=== PATIENT | male | born 1955 | race Caucasian/White ===

== ENCOUNTER 2018-10-06 12:50 | Emergency (ER) | payer MEDICARE, MEDICAID ==
[~2018-10-06] VITALS: Ht 162.6 cm; Wt 81.8 kg
[~2018-10-06 12:50] MED LIST: ALBU18HF2 INH; BECL8.7A7 IH; BUPR-83 PO; DULO60CA45 PO; FERR325T39 PO; FLO0.4C PO; HYDR-4353 PO; IPRA3AMP9 IH; LORA10TA65 PO; MONT10TA21 PO; OMEP20CA10 PO
[2018-10-06 14:02] LABS: BASOPHILS % (AUTO) 0.1 % (0-1); EOSINOPHILS # (AUTO) 0.2 X10'3 (0-0.9); EOSINOPHILS % (AUTO) 2.5 % (0-6); LYMPHOCYTES # (AUTO) 0.5 X10'3 (1.1-4.8); LYMPHOCYTES % (AUTO) 5.7 % (21-51); MEAN CORPUSCULAR HGB CONC 31.7 % (33.0-36.5); MEAN CORPUSCULAR VOLUME 91.5 FL (78-98); MEAN PLATELET VOLUME 8.1 FL (7.4-10.4); MONOCYTES # (AUTO) 0.6 X10'3 (0-0.9); MONOCYTES % (AUTO) 6.7 % (2-12); NEUTROPHILS # (AUTO) 7.9 X10'3 (1.8-7.7); PLATELET COUNT 208 X10'3 (140-440); RED BLOOD COUNT 6.34 X10'6 (4.70-6.10); RED CELL DISTRIBUTION WIDTH 17.5 % (11.5-14.5); WHITE BLOOD COUNT 9.3 X10'3 (4.5-11.0)
[2018-10-06 14:12] LABS: HEMOGLOBIN 18.4 g/dl (14.0-17.9)
[2018-10-06 14:15] LABS: ALANINE AMINOTRANSFERASE 111 U/L (12-78); ALBUMIN 2.8 G/DL (3.4-5.0); ALKALINE PHOSPHATASE 520 IU/L (46-116); ANION GAP 7 (8-16); ASPARTATE AMINO TRANSFERASE 99 U/L (10-37); BILIRUBIN,TOTAL 7.4 MG/DL (0.1-1.0); BLOOD UREA NITROGEN 9 MG/DL (7-18); BUN/CREATININE RATIO 9.9 (5.4-32.0); CALCIUM 9.5 MG/DL (8.5-10.1); CHLORIDE 96 MMOL/L (99-107); CREATININE 0.91 MG/DL (0.60-1.10); GLUCOSE 116 MG/DL (70-104); LIPASE 66 U/L (73-393); SODIUM 133 MMOL/L (135-145); TOTAL CARBON DIOXIDE 30.1 MMOL/L (24-32); eGFR 84 ML/MIN
[2018-10-06] MEDS ORDERED: normal saline 1000ML IV soln IVB ONE (14:15)
[2018-10-06] MEDS ORDERED: ondansetron/PF 4mg/2ml inj IV ONE (14:15)
[2018-10-06 14:20] LABS: ALBUMIN/GLOBULIN RATIO 0.5 (1.1-1.5); POTASSIUM 4.8 MMOL/L (3.5-5.1)
[2018-10-06 15:10] LABS: INR 1.2 INR; PROTHROMBIN TIME 11.8 SECONDS (9.0-12.0)
[2018-10-06 16:09] VITALS: BP 93/47
[2018-10-06] MEDS ORDERED: morphine 4 MG/ML inj SYRINge IV ONE (16:55)
== END 2018-10-06 17:32 | disposition left against medical advice (07) ==
LOC: ER 12:51
DX: R10.9 Unspecified abdominal pain (principal); R94.5 Abnormal results of liver function studies; R79.89 Other specified abnormal findings of blood chemistry; Z79.899 Other long term (current) drug therapy; Z88.5 Allergy status to narcotic agent; Z88.1 Allergy status to other antibiotic agents; Z93.2 Ileostomy status
CPT/HCPCS: 36415; 74176; 76700; 80053; 83690; 85025; 85610; 96374; 96375; 99284; J2270; J2405; J7030

== ENCOUNTER 2019-03-29 12:49 | Outpatient (CLI) | payer MEDICARE, MEDICAID | END 2019-03-29 23:59 | disposition home or self-care (01) | LOC: CARD DIAG 12:49 | PROVIDERS: ATTEND Internal Medicine Critical Care Medicine | DX: I05.8 Other rheumatic mitral valve diseases (principal); I48.91 Unspecified atrial fibrillation; I11.9 Hypertensive heart disease without heart failure; J44.9 Chronic obstructive pulmonary disease, unspecified; F17.200 Nicotine dependence, unspecified, uncomplicated | CPT/HCPCS: 93306 ==

== ENCOUNTER 2019-06-03 14:52 | Inpatient (IN) | payer MEDICARE, MEDICAID ==
[~2019-06-03] VITALS: Ht 160 cm; Wt 81.0 kg
[~2019-06-03 14:52] MED LIST changes: -BECL8.7A7 IH; -BUPR-83 PO; +COR3.125T PO; +DULO20CA18 PO; -DULO60CA45 PO; -FERR325T39 PO; +FOLI1TAB16 PO; +LACT10SO32 PO; -LORA10TA65 PO; +MELA3TAB64 PO; +MULT-1179 PO; +OLAN5TAB26 PO; -OMEP20CA10 PO; +OMEP20CA11 PO; +PRED10TA23 PO; +RIFA550T PO; +[UNRECOGNIZED DRUG - CODE] PO; +thiamine tablet PO
[2019-06-03] MEDS ORDERED: magnesium 2GM in 50ml NS 50 ML IV ONE (15:05)
[2019-06-03] MEDS ORDERED: ipratropium/albuterol 3ml nebule NEB ONE (15:05)
[2019-06-03] MEDS ORDERED: methylPREDNISolone sod succ 125mg/2ml vial IV ONE (15:05)
[2019-06-03 15:23] LABS: BASOPHILS % (AUTO) 1.4 % (0-1); EOSINOPHILS # (AUTO) 0.1 X10'3 (0-0.9); EOSINOPHILS % (AUTO) 3.7 % (0-6); HEMATOCRIT 23.1 % (42.0-52.0); LYMPHOCYTES # (AUTO) 1.2 X10'3 (1.1-4.8); LYMPHOCYTES % (AUTO) 44.1 % (21-51); MEAN CORPUSCULAR HEMOGLOBIN 38.4 PG (27.0-31.0); MEAN CORPUSCULAR HGB CONC 34.7 g/dL (33.0-36.5); MEAN CORPUSCULAR VOLUME 110.5 FL (78-98); MEAN PLATELET VOLUME 11.4 FL (7.4-10.4); MONOCYTES # (AUTO) 0.1 X10'3 (0-0.9); MONOCYTES % (AUTO) 4.6 % (2-12); NEUTROPHILS # (AUTO) 1.3 X10'3 (1.8-7.7); NEUTROPHILS % (AUTO) 46.2 % (42-75); PLATELET COUNT 61 X10'3 (140-440); RED BLOOD COUNT 2.09 X10'6 (4.70-6.10); RED CELL DISTRIBUTION WIDTH 14.7 % (11.5-14.5); WHITE BLOOD COUNT 2.7 X10'3 (4.5-11.0)
[2019-06-03 15:37] LABS: ALANINE AMINOTRANSFERASE 57 U/L (12-78); ALBUMIN 2.2 G/DL (3.4-5.0); ALBUMIN/GLOBULIN RATIO 0.6 (1.1-1.5); ALKALINE PHOSPHATASE 238 IU/L (46-116); ANION GAP 8 (8-16); ASPARTATE AMINO TRANSFERASE 28 U/L (10-37); BLOOD UREA NITROGEN 19 MG/DL (7-18); BUN/CREATININE RATIO 20.4 (5.4-32.0); CALCIUM 7.7 MG/DL (8.5-10.1); CHLORIDE 101 MMOL/L (99-107); CREATININE 0.93 MG/DL (0.60-1.10); GLUCOSE 98 MG/DL (70-104); POTASSIUM 4.1 MMOL/L (3.5-5.1); SODIUM 134 MMOL/L (135-145); TOTAL CARBON DIOXIDE 25.5 MMOL/L (24-32); TOTAL PROTEIN 6.2 G/DL (6.4-8.2); eGFR 82 ML/MIN
[2019-06-03 15:46] LABS: D-DIMER 0.46 MG/L FEU (0-0.50)
[2019-06-03 16:08] LABS: PLATELET ESTIMATE DECREASED; TOTAL CELLS COUNTED 100
[2019-06-03 16:15] LABS: HYPOCHROMASIA 1+; LARGE PLATELETS FEW; POLYCHROMASIA 1+; ROULEAUX 1+
--- NOTE | 2019-06-03 16:38 | NUR ---
OK TO SHARE MEDICAL INFORMATION WITH BLANCA SULLIVAN [phone].
[2019-06-03] MEDS ORDERED: FOLI1TAB16 PO (17:10)
[2019-06-03] MEDS ORDERED: CARV3.122 PO (17:10)
[2019-06-03] MEDS ORDERED: LACT10SO PO (17:10)
[2019-06-03] MEDS ORDERED: LORA10TA65 PO (17:12)
[2019-06-03] MEDS ORDERED: DULO20CA50 PO (17:14)
[2019-06-03 17:19] LABS: OCCULT BLOOD STOOL NEGATIVE (Neg)
[2019-06-03] MEDS ORDERED: acetaminophen 325mg tablet PO PRN (17:50)
[2019-06-03] MEDS ORDERED: potassium Cl 20 mEq SR tablet PO PRN ×2 (17:50)
[2019-06-03] MEDS ORDERED: magnesium 2GM in 50ml NS 50 ML IV PRN (17:50)
[2019-06-03] MEDS ORDERED: magnesium Cl slow-release 64mg tablet PO PRN (17:50)
[2019-06-03] MEDS ORDERED: ondansetron/PF 4mg/2ml inj IV PRN (17:50)
[2019-06-03] MEDS ORDERED: magnesium 4gm in 100ml NS 100 ML IV PRN (17:50)
[2019-06-03] MEDS ORDERED: potassium CL 10mEq/100ml bag 100 ML IV PRN ×2 (17:50)
[2019-06-03] MEDS: normal saline 1000ml 1,000 ML IV SCH ×3 (19:32→23:01)
[2019-06-03] MEDS: ipratropium/albuterol 3ml nebule NEB SCH (20:20)
--- NOTE | 2019-06-03 20:20 | NUR ---
received report from [facility] ED RN at 1940, We went over patient plan of care and I was able to ask questions. 2014 patient arived on gurney with Willard RN, in no apparent distress.
--- NOTE | 2019-06-03 20:40 | NUR ---
Patient came up in underwear and shorts that he had urinated in. Patient refuses to to take them off and put a gown on. I explained to him that they were soiled and they should be taken off so he wont get any skin break down. He still refused. Patient states that his will bring clean ones tomorrow.
[2019-06-03] MEDS: methylPREDNISolone sod succ/PF 40mg inj. IV SCH (20:44)
[2019-06-03] MEDS: ESOMEPRAZOLE 40 MG VIAL IV SCH (20:45)
[2019-06-03] MEDS ORDERED: magnesium oxide 400mg tablet PO ONE (22:10)
[2019-06-04] VITALS: BP 124/80
[2019-06-04] MEDS: normal saline 1000ml 1,000 ML IV SCH (02:04)
[2019-06-04] MEDS: ipratropium/albuterol 3ml nebule NEB SCH ×4 (03:01→20:09)
[2019-06-04 05:34] LABS: HEMOGLOBIN 8.8 g/dl (14.0-17.9); LYMPHOCYTES # (AUTO) 0.3 X10'3 (1.1-4.8); NEUTROPHILS # (AUTO) 1.1 X10'3 (1.8-7.7); RED CELL DISTRIBUTION WIDTH 14.5 % (11.5-14.5); WHITE BLOOD COUNT 1.6 X10'3 (4.5-11.0)
[2019-06-04 05:35] LABS: EOSINOPHILS % (AUTO) 1.8 % (0-6); HEMATOCRIT 24.9 % (42.0-52.0); LYMPHOCYTES % (AUTO) 20.7 % (21-51); MEAN CORPUSCULAR HEMOGLOBIN 38.7 PG (27.0-31.0); MEAN CORPUSCULAR HGB CONC 35.3 g/dL (33.0-36.5); MEAN CORPUSCULAR VOLUME 109.5 FL (78-98); MONOCYTES # (AUTO) 0.1 X10'3 (0-0.9); MONOCYTES % (AUTO) 3.3 % (2-12); NEUTROPHILS % (AUTO) 73.2 % (42-75); RED BLOOD COUNT 2.27 X10'6 (4.70-6.10)
[2019-06-04 05:38] LABS: PLATELET COUNT 41 X10'3 (140-440)
[2019-06-04 05:49] LABS: ALBUMIN 2.3 G/DL (3.4-5.0); ANION GAP 8 (8-16); BLOOD UREA NITROGEN 21 MG/DL (7-18); BUN/CREATININE RATIO 24.7 (5.4-32.0); CALCIUM 8.3 MG/DL (8.5-10.1); CHLORIDE 102 MMOL/L (99-107); CREATININE 0.85 MG/DL (0.60-1.10); GLUCOSE 167 MG/DL (70-104); MAGNESIUM 1.7 MG/DL (1.5-2.4); POTASSIUM 4.4 MMOL/L (3.5-5.1); SODIUM 137 MMOL/L (135-145); TOTAL CARBON DIOXIDE 26.9 MMOL/L (24-32); eGFR > 90 ML/MIN
[2019-06-04 06:01] LABS: LARGE PLATELETS FEW; PLATELET ESTIMATE DECREASED; POLYCHROMASIA 1+; TOTAL CELLS COUNTED 100
--- NOTE | 2019-06-04 06:33 | NUR ---
Patient in room DAHLIA 340. I have received report from SUHAS Tamayo and had the opportunity to ask questions and assume patient care.
--- NOTE | 2019-06-04 06:42 | NUR ---
Problems reprioritized. Patient report given, questions answered & plan of care reviewed with Jennifer DAI.
[2019-06-04] MEDS: K and/or MAG REPLACEMENT MC SCH (06:57)
[2019-06-04 06:58] VITALS: BP 124/69
[2019-06-04] MEDS ORDERED: levoFLOXACIN-Levaquin 500mg/D5 100 ML IV SCH (08:00)
[2019-06-04] MEDS: ESOMEPRAZOLE 40 MG VIAL IV SCH ×2 (08:27→20:50)
[2019-06-04] MEDS: methylPREDNISolone sod succ/PF 40mg inj. IV SCH ×2 (08:36→20:42)
[2019-06-04] MEDS: HYDROcodone/acetaminophen 10/325mg tab PO PRN ×3 (10:38→22:39)
[2019-06-04 11:15] VITALS: BP 102/57
[2019-06-04] MEDS ORDERED: furosemide 20 MG/2 ML vial IV ONE (11:15)
[2019-06-04 12:21] LABS: ABG BASE EXCESS 1.6 mmol/L (-2.0-3.0); ABG HCO3 24.7 mmol/L (22.0-26.0); ABG OXYGEN SATURATION 92.9 % (95-98); ABG PH (T) 7.492 (7.350-7.450); ABG PO2 (T) 70.1 mmHg (83-108); ALLEN'S TEST Positive; FCOHb 0.4 % (0.5-1.5); FLOW 15 L/min; FMetHb 0.1 % (0.3-1.12); FO2Hb 92.4 % (94-100); TOTAL HEMOGLOBIN 9.5 G/dl (14.0-18.0)
--- NOTE | 2019-06-04 13:00 | NUR ---
Received report from Clau DAI, was able to have all questions answered.
[2019-06-04 13:05] VITALS: BP 115/71
--- NOTE | 2019-06-04 13:05 | NUR ---
Received patient on unit stable on 15 lpm NRB, saturation 98%, denies shortness of breath. C/O headache pain but too early to give prn medication. Instructed in distraction and relaxation techniques.
--- NOTE | 2019-06-04 13:20 | NUR ---
1115 Patient stated chest pain 5/10 on the left side that did not radiate and felt like a dull stab. Patient was short of breath and lost color in his face. VS were taken and were as follows 102/57 L HR 117 RR 20 saturation of 56% on 10 L highflow NC. MD was called and ordered a stat EKG. Patient was placed on a nonrebreather on 15 L. Patient saturation slowly started coming up to finally 97%. Dr. Mondragon called clerk general for evaluation and the recommendation was call a rapid response for ICU vs PCU evaluation. It was determined that PCU was the best fit for the patient at this time. Patient was in mild distress during this and stated that he felt the pain had subsided.
--- NOTE | 2019-06-04 13:29 | NUR ---
Patient was transferred to PCU to room 3026 B and report was called to SUHAS Ritter. Before transferring the patient, he was asked if he would like to change his clothing into a hospital gown. Patient stated that his family would bring him new clothes and that he did not want to wear a gown at this time. Patient was asked to at least put nonslip socks on because he would be ambulating from bed to wheelchair. Patient declined stating "I don't want to wear those darn things, I am not going to fall!"
[2019-06-04 15:00] VITALS: BP 122/68
--- NOTE | 2019-06-04 18:00 | NUR ---
Problems reprioritized. Patient report given, questions answered & plan of care reviewed with Alexx DAI.
[2019-06-04 19:00] VITALS: BP 113/69
[2019-06-05] MEDS: ipratropium/albuterol 3ml nebule NEB SCH ×4 (02:34→20:29)
[2019-06-05 03:00] VITALS: BP 113/77
[2019-06-05] MEDS: HYDROcodone/acetaminophen 10/325mg tab PO PRN ×3 (05:08→21:08)
[2019-06-05 05:53] LABS: HEMOGLOBIN 8.5 g/dl (14.0-17.9); LYMPHOCYTES # (AUTO) 0.3 X10'3 (1.1-4.8); MONOCYTES # (AUTO) 0.1 X10'3 (0-0.9); WHITE BLOOD COUNT 2.5 X10'3 (4.5-11.0)
[2019-06-05 06:00] VITALS: BP 112/64
--- NOTE | 2019-06-05 06:00 | NUR ---
Patient in room PCU 3026. I have received report from Alexx DAI and had the opportunity to ask questions and assume patient care.
[2019-06-05 06:02] LABS: BASOPHILS % (AUTO) 0.9 % (0-1); EOSINOPHILS % (AUTO) 0.6 % (0-6); HEMATOCRIT 24.1 % (42.0-52.0); LYMPHOCYTES % (AUTO) 12.2 % (21-51); MEAN CORPUSCULAR HEMOGLOBIN 38.6 PG (27.0-31.0); MEAN CORPUSCULAR HGB CONC 35.3 g/dL (33.0-36.5); MEAN CORPUSCULAR VOLUME 109.4 FL (78-98); MONOCYTES % (AUTO) 4.4 % (2-12); NEUTROPHILS # (AUTO) 2.1 X10'3 (1.8-7.7); NEUTROPHILS % (AUTO) 81.9 % (42-75); RED CELL DISTRIBUTION WIDTH 14.1 % (11.5-14.5)
[2019-06-05 06:12] LABS: ALBUMIN 2.3 G/DL (3.4-5.0); ANION GAP 6 (8-16); BLOOD UREA NITROGEN 22 MG/DL (7-18); BUN/CREATININE RATIO 25.6 (5.4-32.0); CALCIUM 8.2 MG/DL (8.5-10.1); CHLORIDE 101 MMOL/L (99-107); CREATININE 0.86 MG/DL (0.60-1.10); GLUCOSE 176 MG/DL (70-104); MAGNESIUM 1.5 MG/DL (1.5-2.4); POTASSIUM 4.1 MMOL/L (3.5-5.1); SODIUM 135 MMOL/L (135-145); TOTAL CARBON DIOXIDE 28.2 MMOL/L (24-32); eGFR 90 ML/MIN
[2019-06-05 06:14] LABS: PLATELET COUNT 41 X10'3 (140-440)
--- NOTE | 2019-06-05 06:19 | NUR ---
Call to Dr Monroe re: critical lab plt 41, same value as yesterday, no new orders
[2019-06-05 06:39] LABS: PLATELET ESTIMATE DECREASED; TOTAL CELLS COUNTED 100
[2019-06-05 06:40] LABS: ANISOCYTOSIS 1+; HYPOCHROMASIA 1+; LARGE PLATELETS FEW; POLYCHROMASIA 1+; ROULEAUX 1+
[2019-06-05] MEDS: K and/or MAG REPLACEMENT MC SCH (08:00)
[2019-06-05] MEDS: methylPREDNISolone sod succ/PF 40mg inj. IV SCH ×2 (08:52→20:53)
[2019-06-05] MEDS: pantoprazole 40mg Tablet.DR PO SCH ×2 (08:52→20:53)
[2019-06-05 11:00] VITALS: BP 107/74
[2019-06-05] MEDS: levoFLOXACIN 500mg tablet PO SCH (11:10)
[2019-06-05] MEDS ORDERED: CARV3.12 PO (13:33)
[2019-06-05] MEDS ORDERED: DULO20CA50 PO (13:33)
[2019-06-05] MEDS ORDERED: LACT10SO PO ×2 (13:42→14:18)
[2019-06-05] MEDS ORDERED: MELA3TAB64 PO (13:43)
[2019-06-05] MEDS ORDERED: MULT-1179 (14:18)
[2019-06-05] MEDS ORDERED: [UNRECOGNIZED DRUG - CODE] (14:18)
[2019-06-05] MEDS ORDERED: FLO0.4C PO (14:18)
[2019-06-05] MEDS ORDERED: non-formulary drug (Omeprazole 1 CAP) PO PRN (14:30)
[2019-06-05] MEDS ORDERED: HYDROcodone/acetaminophen 10/325mg tab PO PRN (14:30)
[2019-06-05] MEDS: duloxetine 20mg capsule.DR PO SCH (15:23)
--- NOTE | 2019-06-05 18:00 | NUR ---
Problems reprioritized. Patient report given, questions answered & plan of care reviewed with Missy DAI/Shelby DAI.
--- NOTE | 2019-06-05 18:48 | NUR ---
Patient in room PCU 3026. I have received report from Riya DAI and had the opportunity to ask questions and assume patient care.
[2019-06-05 19:00] VITALS: BP 112/66
[2019-06-05] MEDS: tamsulosin 0.4mg capsule PO SCH (20:53)
[2019-06-05] MEDS: carVEDilol 3.125mg tablet PO SCH (20:53)
[2019-06-05] MEDS: lactulose 20gm/30ml cup PO SCH (20:53)
[2019-06-05 22:00] VITALS: BP 112/74
[2019-06-06 02:00] VITALS: BP 108/65
[2019-06-06] MEDS: lactulose 20gm/30ml cup PO SCH ×4 (02:11→19:45)
[2019-06-06] MEDS: ipratropium/albuterol 3ml nebule NEB SCH ×4 (02:38→20:14)
[2019-06-06] MEDS: HYDROcodone/acetaminophen 10/325mg tab PO PRN ×3 (04:04→17:57)
--- NOTE | 2019-06-06 05:12 | NUR ---
Orientee documentation: I have reviewed and agree with all interventions, assessments performed and documented by Shelby DAI.
--- NOTE | 2019-06-06 05:12 | NUR ---
Orientee Medication Administration: For this medication-pass time frame, all medication were reviewed, dispensed, administered and documented per hospital policy by Shelby DAI.
[2019-06-06 05:24] LABS: HEMOGLOBIN 7.3 g/dl (14.0-17.9)
[2019-06-06 05:25] LABS: ALBUMIN 2.3 G/DL (3.4-5.0); ANION GAP 5 (8-16); BLOOD UREA NITROGEN 19 MG/DL (7-18); BUN/CREATININE RATIO 22.1 (5.4-32.0); CALCIUM 8.5 MG/DL (8.5-10.1); CHLORIDE 103 MMOL/L (99-107); CREATININE 0.86 MG/DL (0.60-1.10); GLUCOSE 263 MG/DL (70-104); MAGNESIUM 1.5 MG/DL (1.5-2.4); POTASSIUM 4.5 MMOL/L (3.5-5.1); SODIUM 138 MMOL/L (135-145); TOTAL CARBON DIOXIDE 30.2 MMOL/L (24-32); eGFR 90 ML/MIN
[2019-06-06 05:27] LABS: MEAN CORPUSCULAR HEMOGLOBIN 38.5 PG (27.0-31.0); MEAN CORPUSCULAR HGB CONC 34.8 g/dL (33.0-36.5); MEAN CORPUSCULAR VOLUME 110.4 FL (78-98); MEAN PLATELET VOLUME 10.5 FL (7.4-10.4); RED BLOOD COUNT 1.91 X10'6 (4.70-6.10); RED CELL DISTRIBUTION WIDTH 14.2 % (11.5-14.5); WHITE BLOOD COUNT 1.9 X10'3 (4.5-11.0)
[2019-06-06 05:30] LABS: HEMATOCRIT 21.1 % (42.0-52.0); PLATELET COUNT 28 X10'3 (140-440)
--- NOTE | 2019-06-06 06:25 | NUR ---
Problems reprioritized. Patient report given, questions answered & plan of care reviewed with Kavita DAI.
[2019-06-06 07:00] VITALS: BP 18/74
[2019-06-06 07:24] LABS: TOTAL CELLS COUNTED 100
[2019-06-06 07:25] LABS: GIANT PLATELET FEW; LARGE PLATELETS FEW; PLATELET ESTIMATE DECREASED
[2019-06-06] MEDS: K and/or MAG REPLACEMENT MC SCH (08:00)
--- NOTE | 2019-06-06 09:30 | NUR ---
Called hospitalist re: patients critical labs from this am. Noc shift didn't given any orders, making dayshift aware.
[2019-06-06] MEDS: methylPREDNISolone sod succ/PF 40mg inj. IV SCH ×2 (09:36→19:45)
[2019-06-06] MEDS: loratadine 10mg tablet PO SCH (09:37)
[2019-06-06] MEDS: carVEDilol 3.125mg tablet PO SCH ×2 (09:37→19:45)
[2019-06-06] MEDS: duloxetine 20mg capsule.DR PO SCH (09:37)
[2019-06-06] MEDS: montelukast 10mg tablet PO SCH (09:38)
[2019-06-06] MEDS: folic acid 1mg tablet PO SCH (09:38)
[2019-06-06] MEDS: pantoprazole 40mg Tablet.DR PO SCH (09:38)
[2019-06-06] MEDS: levoFLOXACIN 500mg tablet PO SCH (10:11)
[2019-06-06 11:00] VITALS: BP 111/70
[2019-06-06 15:00] VITALS: BP 104/75
--- NOTE | 2019-06-06 16:04 | NUR ---
Spoke to patients Dmitri, she informed me of patient not wanting to drink water, will encourage drinking of water even more.
--- NOTE | 2019-06-06 16:07 | NUR ---
Spoke to Dr. Mondragon and discussed am labs, states she saw them and for us to get a blood consent ready in case we need it
--- NOTE | 2019-06-06 16:50 | NUR ---
Patient signed blood consent for PRBC's only for hgb less than 7. Will pass onto noc shift.
--- NOTE | 2019-06-06 18:23 | NUR ---
Problems reprioritized. Patient report given, questions answered & plan of care reviewed with ASHUTOSH DAI/BEBO DAI.
--- NOTE | 2019-06-06 18:39 | NUR ---
Patient in room PCU 3026. I have received report from Kavita DAI and had the opportunity to ask questions and assume patient care.
[2019-06-06 19:00] VITALS: BP 109/70
[2019-06-06] MEDS: tamsulosin 0.4mg capsule PO SCH (20:00)
[2019-06-06 22:00] VITALS: BP 107/70
[2019-06-07] MEDS: HYDROcodone/acetaminophen 10/325mg tab PO PRN ×4 (00:32→20:35)
[2019-06-07 02:00] VITALS: BP 113/76
[2019-06-07] MEDS: lactulose 20gm/30ml cup PO SCH ×4 (02:13→20:34)
[2019-06-07] MEDS: ipratropium/albuterol 3ml nebule NEB SCH ×4 (02:41→20:29)
[2019-06-07 04:47] LABS: EOSINOPHILS % (AUTO) 0.4 % (0-6); LYMPHOCYTES # (AUTO) 0.2 X10'3 (1.1-4.8); MONOCYTES # (AUTO) 0.1 X10'3 (0-0.9); NEUTROPHILS # (AUTO) 1.5 X10'3 (1.8-7.7); WHITE BLOOD COUNT 1.8 X10'3 (4.5-11.0)
[2019-06-07 04:50] LABS: BASOPHILS % (AUTO) 0.8 % (0-1); HEMOGLOBIN 7.7 g/dl (14.0-17.9); MEAN CORPUSCULAR HEMOGLOBIN 38.8 PG (27.0-31.0); MEAN CORPUSCULAR HGB CONC 35.3 g/dL (33.0-36.5); MEAN CORPUSCULAR VOLUME 109.9 FL (78-98); MEAN PLATELET VOLUME 11.5 FL (7.4-10.4); MONOCYTES % (AUTO) 4.8 % (2-12); RED BLOOD COUNT 1.98 X10'6 (4.70-6.10); RED CELL DISTRIBUTION WIDTH 13.9 % (11.5-14.5)
[2019-06-07 04:53] LABS: HEMATOCRIT 21.8 % (42.0-52.0); PLATELET COUNT 29 X10'3 (140-440)
--- NOTE | 2019-06-07 04:58 | NUR ---
promotional table spacer PAGER ID: [phone] MESSAGE: Patient Brett Gilliam Rm. 3026B Critical labs reported. Hct=21.8 and Plt=29. Missy DAI ext. [phone]
[2019-06-07 04:59] LABS: ALBUMIN 2.3 G/DL (3.4-5.0); ANION GAP 2 (8-16); BLOOD UREA NITROGEN 20 MG/DL (7-18); BUN/CREATININE RATIO 21.5 (5.4-32.0); CALCIUM 8.9 MG/DL (8.5-10.1); CHLORIDE 101 MMOL/L (99-107); CREATININE 0.93 MG/DL (0.60-1.10); GLUCOSE 259 MG/DL (70-104); MAGNESIUM 1.6 MG/DL (1.5-2.4); POTASSIUM 4.6 MMOL/L (3.5-5.1); SODIUM 134 MMOL/L (135-145); TOTAL CARBON DIOXIDE 31.4 MMOL/L (24-32); eGFR 82 ML/MIN
[2019-06-07 06:00] VITALS: BP 100/69
--- NOTE | 2019-06-07 06:30 | NUR ---
Patient in room PCU 3026. I have received report from ASHUTOSH DAI/BEBO DAI and had the opportunity to ask questions and assume patient care.
--- NOTE | 2019-06-07 06:35 | NUR ---
Problems reprioritized. Patient report given, questions answered & plan of care reviewed with Kavita DAI.
[2019-06-07 07:06] LABS: PLATELET ESTIMATE DECREASED; TOTAL CELLS COUNTED 100
[2019-06-07 07:07] LABS: GIANT PLATELET FEW; LARGE PLATELETS FEW
[2019-06-07 07:08] LABS: SCHISTOCYTES FEW
[2019-06-07] MEDS ORDERED: pantoprazole 40mg Tablet.DR PO SCH (07:30)
[2019-06-07] MEDS: folic acid 1mg tablet PO SCH (07:43)
[2019-06-07] MEDS: loratadine 10mg tablet PO SCH (07:43)
[2019-06-07] MEDS: carVEDilol 3.125mg tablet PO SCH ×2 (07:44→20:36)
[2019-06-07] MEDS: duloxetine 20mg capsule.DR PO SCH (07:44)
[2019-06-07] MEDS: montelukast 10mg tablet PO SCH (07:44)
[2019-06-07] MEDS: methylPREDNISolone sod succ/PF 40mg inj. IV SCH ×2 (07:44→20:34)
[2019-06-07] MEDS: K and/or MAG REPLACEMENT MC SCH (07:45)
[2019-06-07] MEDS: levoFLOXACIN 500mg tablet PO SCH (10:58)
[2019-06-07 11:00] VITALS: BP 100/52
[2019-06-07 15:00] VITALS: BP 119/78
--- NOTE | 2019-06-07 18:08 | NUR ---
Problems reprioritized. Patient report given, questions answered & plan of care reviewed with Missy DAI/Shelby DAI.
--- NOTE | 2019-06-07 18:22 | NUR ---
Patient in room PCU 3026. I have received report from Kavita DAI and had the opportunity to ask questions and assume patient care.
[2019-06-07 19:00] VITALS: BP 105/66
[2019-06-07] MEDS: tamsulosin 0.4mg capsule PO SCH (20:34)
[2019-06-07] MEDS: famotidine 20mg tablet PO SCH (20:34)
[2019-06-07 22:00] VITALS: BP 111/70
[2019-06-08] MEDS: lactulose 20gm/30ml cup PO SCH ×4 (01:11→20:23)
[2019-06-08 02:00] VITALS: BP 106/73
[2019-06-08] MEDS: HYDROcodone/acetaminophen 10/325mg tab PO PRN ×3 (02:25→17:50)
[2019-06-08] MEDS: ipratropium/albuterol 3ml nebule NEB SCH ×4 (03:07→19:57)
[2019-06-08 04:49] LABS: BASOPHILS % (AUTO) 0.4 % (0-1); HEMOGLOBIN 8.1 g/dl (14.0-17.9); LYMPHOCYTES # (AUTO) 0.2 X10'3 (1.1-4.8); MONOCYTES # (AUTO) 0.1 X10'3 (0-0.9)
[2019-06-08 04:52] LABS: EOSINOPHILS % (AUTO) 0.6 % (0-6); HEMATOCRIT 23.1 % (42.0-52.0); LYMPHOCYTES % (AUTO) 12.4 % (21-51); MEAN CORPUSCULAR HEMOGLOBIN 38.1 PG (27.0-31.0); MEAN CORPUSCULAR HGB CONC 35.2 g/dL (33.0-36.5); MEAN PLATELET VOLUME 10.8 FL (7.4-10.4); MONOCYTES % (AUTO) 4.9 % (2-12); NEUTROPHILS # (AUTO) 1.6 X10'3 (1.8-7.7); NEUTROPHILS % (AUTO) 81.7 % (42-75); RED BLOOD COUNT 2.13 X10'6 (4.70-6.10)
[2019-06-08 04:55] LABS: ALBUMIN 2.5 G/DL (3.4-5.0); ANION GAP 3 (8-16); BLOOD UREA NITROGEN 21 MG/DL (7-18); BUN/CREATININE RATIO 21.9 (5.4-32.0); CALCIUM 8.9 MG/DL (8.5-10.1); CHLORIDE 98 MMOL/L (99-107); CREATININE 0.96 MG/DL (0.60-1.10); GLUCOSE 291 MG/DL (70-104); MAGNESIUM 1.6 MG/DL (1.5-2.4); POTASSIUM 4.5 MMOL/L (3.5-5.1); SODIUM 133 MMOL/L (135-145); TOTAL CARBON DIOXIDE 32.2 MMOL/L (24-32); eGFR 79 ML/MIN
[2019-06-08 05:23] LABS: PLATELET COUNT 30 X10'3 (140-440)
--- NOTE | 2019-06-08 05:24 | NUR ---
PAGER ID: [phone] MESSAGE: Patient Brett Gilliam Rm 3026B Critical Plt count of 30. Yesterday it was 29. Missy DAI ext. [phone]
[2019-06-08 05:39] LABS: PLATELET ESTIMATE DECREASED; TOTAL CELLS COUNTED 100
[2019-06-08 05:44] LABS: ANISOCYTOSIS 1+; ELLIPTOCYTES FEW; LARGE PLATELETS FEW
--- NOTE | 2019-06-08 05:46 | NUR ---
Orientee documentation: I have reviewed and agree with all interventions, assessments performed and documented by Shelby DAI. Orientee Medication Administration: For this medication-pass time frame, all medication were reviewed, dispensed, administered and documented per hospital policy by Shelby DAI.
[2019-06-08 05:47] LABS: POLYCHROMASIA FEW; TEAR DROP CELLS 1+
--- NOTE | 2019-06-08 06:31 | NUR ---
Problems reprioritized. Patient report given, questions answered & plan of care reviewed with Radha DAI and Leidy DAI.
--- NOTE | 2019-06-08 06:52 | NUR ---
Patient in room PCU 3026. I have received report from SUHAS Louis and had the opportunity to ask questions and assume patient care. Patient is alert and awake and in no apparent distress
[2019-06-08 06:56] VITALS: BP 107/70
[2019-06-08] MEDS: montelukast 10mg tablet PO SCH (08:00)
[2019-06-08] MEDS: K and/or MAG REPLACEMENT MC SCH (08:00)
[2019-06-08] MEDS: folic acid 1mg tablet PO SCH (08:34)
[2019-06-08] MEDS: loratadine 10mg tablet PO SCH (08:34)
[2019-06-08] MEDS: methylPREDNISolone sod succ/PF 40mg inj. IV SCH ×2 (08:34→20:23)
[2019-06-08] MEDS: carVEDilol 3.125mg tablet PO SCH ×2 (08:34→20:23)
[2019-06-08] MEDS: duloxetine 20mg capsule.DR PO SCH (08:34)
--- NOTE | 2019-06-08 10:00 | NUR ---
Initial: Pt admit with acute resp fail, COPD exacerbation, and pancytopenia likely d/t cirrhosis of the liver per MD notes. 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 Difficile colitis. LBM 06/07 documented with 810 mL stool output. Pt currently on regular diet with documented 75-100% PO intake meeting nutrient needs. D/w RN the addition of routine Thiamine and MVI per MD approval given hx Etoh with MCV 108. Also d/w RN recommendation to change diet order to heart healthy per MD approval given admit dx. No edema or wounds. No nutrition diagnosis at this time. Will continue to follow. Recommendations: 1) Diet change to heart healthy 2) Continue routine Folic acid with the addition of Thiamine and MVI given hx Etoh with current MCV 108 3) Wt per rx Addendum: 06/08/19 at [address] Amended: Links added.
--- NOTE | 2019-06-08 10:06 | NUR ---
: 3026B Brett Gilliam: Dietary recommends Multivitamin and thiamine supplement, and change to Heart Healthy diet. SUHAS Meyers [phone]
[2019-06-08 11:00] VITALS: BP 114/65
[2019-06-08] MEDS: levoFLOXACIN 500mg tablet PO SCH (11:04)
[2019-06-08 15:00] VITALS: BP 111/66
--- NOTE | 2019-06-08 17:25 | NUR ---
Orientee documentation: I have reviewed all interventions, assessments performed and documented by Mira DAI. Orientee Medication Administration: For this medication-pass time frame, all medication were reviewed, dispensed, administered and documented by Mira DAI. Constructive criticism given as needed.
--- NOTE | 2019-06-08 18:20 | NUR ---
Patient in room PCU 3026. I have received report from Radha DAI and had the opportunity to ask questions and assume patient care.
--- NOTE | 2019-06-08 18:27 | NUR ---
Problems reprioritized. Patient report given, questions answered & plan of care reviewed with SUHAS Vazquez.
[2019-06-08 19:00] VITALS: BP 100/64
--- NOTE | 2019-06-08 19:30 | NUR ---
pt non compliant with O2 treatment pt o2 sat dropped into the low 80's, went into pt room to investigate and pt was sleeping and mouth breathing. turned up O2 to 13L from 10L and rechecked O2 sat. Sat was still low, went back into room and woke up pt to address the issue explained that O2 was low and we needed to either put on a mask or move the NC to the mouth. pt REFUSED mask and stated "no", i tried to educate on the importance of maintaining proper O2 sat, but pt was unreceptive. I left him alone and recheck sats. pt was in range. i was notified of falling O2 sat once again pt was sleeping and mouth breathing. when i woke him up this time he got very upset with me and reluctantly moved the NC into his mouth, O2 sat john to within range. I will leave O2 at 13L for the night and will continue to monitor.
[2019-06-08] MEDS: thiamine 100mg tablet PO SCH (20:23)
[2019-06-08] MEDS: famotidine 20mg tablet PO SCH (20:23)
[2019-06-08] MEDS: tamsulosin 0.4mg capsule PO SCH (20:23)
[2019-06-08 23:00] VITALS: BP 90/68
[2019-06-09] MEDS: ipratropium/albuterol 3ml nebule NEB SCH ×4 (01:31→20:31)
[2019-06-09] MEDS: lactulose 20gm/30ml cup PO SCH ×4 (02:08→19:23)
[2019-06-09 03:00] VITALS: BP 115/69
[2019-06-09] MEDS: HYDROcodone/acetaminophen 10/325mg tab PO PRN ×3 (04:16→18:54)
[2019-06-09 06:00] VITALS: BP 109/68
--- NOTE | 2019-06-09 06:09 | NUR ---
Problems reprioritized. Patient report given, questions answered & plan of care reviewed with Julian DAI.
--- NOTE | 2019-06-09 06:10 | NUR ---
Patient in room PCU 3026. I have received report from Dio RN and had the opportunity to ask questions and assume patient care.
[2019-06-09] MEDS: methylPREDNISolone sod succ/PF 40mg inj. IV SCH ×2 (07:50→19:23)
[2019-06-09] MEDS: folic acid 1mg tablet PO SCH (07:51)
[2019-06-09] MEDS: thiamine 100mg tablet PO SCH ×2 (07:51→19:23)
[2019-06-09] MEDS: carVEDilol 3.125mg tablet PO SCH ×2 (07:51→19:23)
[2019-06-09] MEDS: duloxetine 20mg capsule.DR PO SCH (07:51)
[2019-06-09] MEDS: multivitamins, therapeutics tablet PO SCH (07:52)
[2019-06-09] MEDS: montelukast 10mg tablet PO SCH (07:52)
[2019-06-09] MEDS: K and/or MAG REPLACEMENT MC SCH (08:00)
[2019-06-09] MEDS: loratadine 10mg tablet PO SCH (08:03)
[2019-06-09 11:11] VITALS: BP 110/66
[2019-06-09] MEDS: levoFLOXACIN 500mg tablet PO SCH (11:33)
[2019-06-09 14:39] LABS: BASOPHILS % (AUTO) 0.5 % (0-1); LYMPHOCYTES # (AUTO) 0.2 X10'3 (1.1-4.8); LYMPHOCYTES % (AUTO) 9.3 % (21-51); MEAN CORPUSCULAR HEMOGLOBIN 38.4 PG (27.0-31.0); MONOCYTES # (AUTO) 0.1 X10'3 (0-0.9)
[2019-06-09 14:41] LABS: EOSINOPHILS % (AUTO) 0.6 % (0-6); HEMATOCRIT 23.8 % (42.0-52.0); HEMOGLOBIN 8.5 g/dl (14.0-17.9); MEAN CORPUSCULAR HGB CONC 35.7 g/dL (33.0-36.5); MEAN CORPUSCULAR VOLUME 107.6 FL (78-98); MEAN PLATELET VOLUME 11.6 FL (7.4-10.4); MONOCYTES % (AUTO) 3.7 % (2-12); NEUTROPHILS % (AUTO) 85.9 % (42-75); RED BLOOD COUNT 2.21 X10'6 (4.70-6.10); WHITE BLOOD COUNT 2.3 X10'3 (4.5-11.0)
--- NOTE | 2019-06-09 14:50 | NUR ---
pt refused to let me increase LPM to keep sat above 88%. "Leave it alone, don't touch anything!" When I tried to explain his low saturation, "Its my body! I talked to the RN and we are lowering it so I can go home. Im not staying here any longer" will let SUHAS Jordan know. Addendum: 06/09/19 at 1453 by Miguel Ángel Curtis RT Amended: Links added.
[2019-06-09 14:52] LABS: ALBUMIN 2.7 G/DL (3.4-5.0); ANION GAP 7 (8-16); BLOOD UREA NITROGEN 25 MG/DL (7-18); BUN/CREATININE RATIO 22.9 (5.4-32.0); CALCIUM 8.9 MG/DL (8.5-10.1); CHLORIDE 97 MMOL/L (99-107); CREATININE 1.09 MG/DL (0.60-1.10); GLUCOSE 319 MG/DL (70-104); SODIUM 132 MMOL/L (135-145); TOTAL CARBON DIOXIDE 28.3 MMOL/L (24-32); eGFR 69 ML/MIN
[2019-06-09 15:00] VITALS: BP 99/69
[2019-06-09 15:03] LABS: PLATELET COUNT 45 X10'3 (140-440)
--- NOTE | 2019-06-09 15:08 | NUR ---
PAGER ID: [phone] MESSAGE: [id number] Tripp Gilliam Critical PLT 45, up from 30 yesterday. FYI. Liang [phone]
[2019-06-09 15:28] LABS: PLATELET ESTIMATE DECREASED; TOTAL CELLS COUNTED 100
[2019-06-09 15:30] LABS: LARGE PLATELETS FEW; POLYCHROMASIA FEW; TEAR DROP CELLS FEW
[2019-06-09 15:33] LABS: SCHISTOCYTES FEW
--- NOTE | 2019-06-09 18:20 | NUR ---
Problems reprioritized. Patient report given, questions answered & plan of care reviewed with Kelin DAI.
--- NOTE | 2019-06-09 18:43 | NUR ---
Patient in room PCU 3026. I have received report from Julian and had the opportunity to ask questions and assume patient care. Checked on patient, he is resting. Will continue to monitor.
[2019-06-09 19:00] VITALS: BP 108/64
[2019-06-09] MEDS: tamsulosin 0.4mg capsule PO SCH (21:26)
[2019-06-09] MEDS: famotidine 20mg tablet PO SCH (21:26)
[2019-06-09 23:00] VITALS: BP 112/65
[2019-06-10] MEDS: lactulose 20gm/30ml cup PO SCH ×4 (02:20→20:53)
[2019-06-10] MEDS: ipratropium/albuterol 3ml nebule NEB SCH ×4 (02:48→20:39)
[2019-06-10 03:00] VITALS: BP 105/64
[2019-06-10 06:00] VITALS: BP 108/68
--- NOTE | 2019-06-10 06:16 | NUR ---
Problems reprioritized. Patient report given, questions answered & plan of care reviewed with Julian DAI.
--- NOTE | 2019-06-10 06:20 | NUR ---
Patient in room PCU 3026. I have received report from Kelin DAI and had the opportunity to ask questions and assume patient care.
[2019-06-10 06:23] LABS: BASOPHILS % (AUTO) 0.5 % (0-1); EOSINOPHILS % (AUTO) 0.6 % (0-6); HEMOGLOBIN 7.7 g/dl (14.0-17.9); LYMPHOCYTES # (AUTO) 0.2 X10'3 (1.1-4.8); MONOCYTES # (AUTO) 0.1 X10'3 (0-0.9); NEUTROPHILS # (AUTO) 1.1 X10'3 (1.8-7.7); WHITE BLOOD COUNT 1.3 X10'3 (4.5-11.0)
[2019-06-10 06:28] LABS: LYMPHOCYTES % (AUTO) 16.5 % (21-51); MEAN CORPUSCULAR HEMOGLOBIN 38.1 PG (27.0-31.0); MEAN CORPUSCULAR HGB CONC 35.7 g/dL (33.0-36.5); MEAN CORPUSCULAR VOLUME 106.6 FL (78-98); MEAN PLATELET VOLUME 10.9 FL (7.4-10.4); MONOCYTES % (AUTO) 3.7 % (2-12); NEUTROPHILS % (AUTO) 78.7 % (42-75); RED BLOOD COUNT 2.03 X10'6 (4.70-6.10); RED CELL DISTRIBUTION WIDTH 13.6 % (11.5-14.5)
[2019-06-10 06:42] LABS: HEMATOCRIT 21.6 % (42.0-52.0)
[2019-06-10 06:43] LABS: PLATELET COUNT 27 X10'3 (140-440)
--- NOTE | 2019-06-10 06:51 | NUR ---
PAGER ID: [phone] MESSAGE: RE: Brett Gilliam, Room: 3026B. Critical Hct 21.6 and critical Plt: 27. Pt has history of cirrhosis and low plt levels. -[facility] #[id number] - paged, Dr. Arango, concerning Pt's critical Hct 21.6 and Plt level 27.
[2019-06-10 06:52] LABS: ANION GAP 5 (8-16); BLOOD UREA NITROGEN 29 MG/DL (7-18); CHLORIDE 98 MMOL/L (99-107); CREATININE 1.02 MG/DL (0.60-1.10); GLUCOSE 298 MG/DL (70-104); POTASSIUM 4.9 MMOL/L (3.5-5.1); SODIUM 135 MMOL/L (135-145); TOTAL CARBON DIOXIDE 32.5 MMOL/L (24-32)
[2019-06-10 06:53] LABS: ALBUMIN 2.5 G/DL (3.4-5.0); BUN/CREATININE RATIO 28.4 (5.4-32.0); CALCIUM 8.7 MG/DL (8.5-10.1); MAGNESIUM 1.7 MG/DL (1.5-2.4); eGFR 74 ML/MIN
[2019-06-10 07:23] LABS: ANISOCYTOSIS 1+; TOTAL CELLS COUNTED 100
[2019-06-10 07:24] LABS: LARGE PLATELETS FEW; PLATELET ESTIMATE DECREASED; POLYCHROMASIA FEW; SCHISTOCYTES FEW
[2019-06-10] MEDS: K and/or MAG REPLACEMENT MC SCH (08:00)
[2019-06-10] MEDS: methylPREDNISolone sod succ/PF 40mg inj. IV SCH ×2 (08:34→20:53)
[2019-06-10] MEDS: thiamine 100mg tablet PO SCH ×2 (08:35→20:53)
[2019-06-10] MEDS: loratadine 10mg tablet PO SCH (08:35)
[2019-06-10] MEDS: montelukast 10mg tablet PO SCH (08:35)
[2019-06-10] MEDS: duloxetine 20mg capsule.DR PO SCH (08:35)
[2019-06-10] MEDS: folic acid 1mg tablet PO SCH (08:35)
[2019-06-10] MEDS: multivitamins, therapeutics tablet PO SCH (08:35)
[2019-06-10] MEDS: carVEDilol 3.125mg tablet PO SCH ×2 (08:35→20:53)
[2019-06-10] MEDS: HYDROcodone/acetaminophen 10/325mg tab PO PRN ×3 (09:39→22:13)
[2019-06-10 11:00] VITALS: BP 93/56
[2019-06-10] MEDS: levoFLOXACIN 500mg tablet PO SCH (12:54)
[2019-06-10 15:00] VITALS: BP 108/65
--- NOTE | 2019-06-10 18:00 | NUR ---
Problems reprioritized. Patient report given, questions answered & plan of care reviewed with Kelin DAI.
--- NOTE | 2019-06-10 18:16 | NUR ---
Patient in room U 3026. I have received report from Julian DAI and had the opportunity to ask questions and assume patient care. Patient sitting up in bed watching TV. Assures me that he is using [employer] on every commercial and he is motivated to get home.
[2019-06-10 19:00] VITALS: BP 108/65
[2019-06-10] MEDS: tamsulosin 0.4mg capsule PO SCH (20:53)
[2019-06-10] MEDS: famotidine 20mg tablet PO SCH (20:53)
[2019-06-10 23:00] VITALS: BP 101/57
[2019-06-11] MEDS: lactulose 20gm/30ml cup PO SCH ×3 (01:35→14:19)
[2019-06-11] MEDS: ipratropium/albuterol 3ml nebule NEB SCH ×2 (02:46→08:28)
[2019-06-11 03:00] VITALS: BP 103/50
--- NOTE | 2019-06-11 06:15 | NUR ---
Patient in room PCU 3026. I have received report from Kelin DAI and had the opportunity to ask questions and assume patient care.
--- NOTE | 2019-06-11 06:16 | NUR ---
Problems reprioritized. Patient report given, questions answered & plan of care reviewed with Julian DAI.
[2019-06-11 07:00] VITALS: BP 94/58
[2019-06-11] MEDS: montelukast 10mg tablet PO SCH (07:48)
[2019-06-11] MEDS: thiamine 100mg tablet PO SCH (07:48)
[2019-06-11] MEDS: multivitamins, therapeutics tablet PO SCH (07:48)
[2019-06-11] MEDS: methylPREDNISolone sod succ/PF 40mg inj. IV SCH (07:48)
[2019-06-11] MEDS: duloxetine 20mg capsule.DR PO SCH (07:48)
[2019-06-11] MEDS: folic acid 1mg tablet PO SCH (07:48)
[2019-06-11] MEDS: loratadine 10mg tablet PO SCH (07:49)
[2019-06-11] MEDS: HYDROcodone/acetaminophen 10/325mg tab PO PRN ×2 (07:49→14:25)
[2019-06-11] MEDS: carVEDilol 3.125mg tablet PO SCH (08:00)
[2019-06-11] MEDS ORDERED: PRED10TA PO (11:45)
[2019-06-11] MEDS ORDERED: LEVO500T89 PO (11:45)
[2019-06-11 12:00] VITALS: BP 111/75
[2019-06-11] MEDS: levoFLOXACIN 500mg tablet PO SCH (12:01)
--- NOTE | 2019-06-11 15:30 | NUR ---
Pt DC'd home. IV removed, canula intact. Tele-box removed and returned to [email or web address]. DC paper paper work gone over with Pt. Allowed Pt to ask questions concerning DC and DC instructions, and then answer them. Nurse went over new medications for Pt to take at home. New meds called into [facility] pharmacy on [address]. Pt stated he will make follow up appt with Primary Care Provider at [facility] in [facility]. Pt's belongings gathered and sent with Pt. Pt Wheeled down to [employer] via wheelchair and Addendum: 06/11/19 at 1605 by Julian Griffin RN Pt DC'd home. IV removed, canula intact. Tele-box removed and returned to [email or web address]. DC paper work gone over with Pt. Allowed Pt to ask questions concerning DC and DC instructions, and then answered them. Nurse went over new medications for Pt to take at home. New meds called into [facility] pharmacy on [facility]. Pt stated he will make follow up appt with Primary Care Provider at [facility] in [facility]. Pt's belongings gathered and sent with Pt. Pt Wheeled down to lobby via wheelchair by [employer] personal. Pt left with [employer] personal for home.
[2019-06-12 08:12] LABS: HBSAG SCREEN Negative (Negative); HEP A AB, IGM Negative (Negative); HEP B CORE AB, IGM Negative (Negative); HEPATITIS C ANTIBODY <0.1 s/co ratio (0.0-0.9)
== END 2019-06-11 15:30 | disposition home health service (06) | DRG 280 ==
LOC: ER 14:52 → SUR 3N 20:31 → PCU 3S 06-04 13:43
PROVIDERS: ADMIT Internal Medicine; ATTEND Family Medicine
DX: I21.A1 Myocardial infarction type 2 (principal); J96.20 Acute and chronic respiratory failure, unspecified whether with hypoxia or hypercapnia; D61.818 Other pancytopenia; J43.9 Emphysema, unspecified; K74.60 Unspecified cirrhosis of liver; F32.9 Major depressive disorder, single episode, unspecified; F41.9 Anxiety disorder, unspecified; E83.42 Hypomagnesemia; K21.9 Gastro-esophageal reflux disease without esophagitis; N40.0 Benign prostatic hyperplasia without lower urinary tract symptoms; F17.210 Nicotine dependence, cigarettes, uncomplicated; Z90.49 Acquired absence of other specified parts of digestive tract; Z93.2 Ileostomy status; Z93.3 Colostomy status; Z99.81 Dependence on supplemental oxygen; Z88.5 Allergy status to narcotic agent; Z88.8 Allergy status to other drugs, medicaments and biological substances; Z79.899 Other long term (current) drug therapy
CPT/HCPCS: 36415; 36600; 71045; 80048; 80053; 80074; 82272; 82803; 83735; 83880; 84484; 85018; 85025; 85379; 85610; 86885; 86900; 86901; 87081; 93005; 94640; 94760; 96365; 96366; 96375; 97116; 97162; 97530; 99285; G0378; J1940; J1956; J2920; J2930; J3475

== ENCOUNTER 2019-06-25 14:17 | Inpatient (IN) | payer MEDICARE, MEDICAID ==
[~2019-06-25] VITALS: Ht 157.5 cm; Wt 79.5 kg
[~2019-06-25 14:17] MED LIST changes: +CARV3.12 PO; +CARV3.122 PO; -COR3.125T PO; -DULO20CA18 PO; +DULO20CA50 PO; +LACT10SO PO; -LACT10SO32 PO; +LEVO500T89 PO; +LORA10TA65 PO; +MULT-1179; -MULT-1179 PO; -OLAN5TAB26 PO; +PRED10TA PO; -PRED10TA23 PO; -RIFA550T PO; +[UNRECOGNIZED DRUG - CODE]; -[UNRECOGNIZED DRUG - CODE] PO; -thiamine tablet PO
[2019-06-25] MEDS ORDERED: methylPREDNISolone sod succ 125mg/2ml vial IV ONE (14:30)
[2019-06-25] MEDS ORDERED: ipratropium/albuterol 3ml nebule NEB ONE (14:30)
[2019-06-25] MEDS ORDERED: albuterol 2.5 MG/3 ML nebule NEB ONE (14:30)
[2019-06-25] MEDS ORDERED: iohexol 350MG/ML 100ml bottle IV ONE (14:39)
--- NOTE | 2019-06-25 14:47 | NUR ---
RT AT BS FOR TX
[2019-06-25 14:55] LABS: ABG BASE EXCESS -5.2 mmol/L (-2.0-3.0); ABG HCO3 19.7 mmol/L (22.0-26.0); ABG OXYGEN SATURATION 96.4 % (95-98); ABG PCO2 (T) 35.5 mmHg (35.0-45.0); ABG PH (T) 7.363 (7.350-7.450); ABG PO2 (T) 103.5 mmHg (83-108); ALLEN'S TEST Positive; FCOHb 1.5 % (0.5-1.5); FLOW 8 L/min; FMetHb 0.3 % (0.3-1.12); FO2Hb 94.7 % (94-100); TOTAL HEMOGLOBIN 6.4 G/dl (14.0-17.9)
[2019-06-25 15:05] LABS: MEAN CORPUSCULAR HGB CONC 34.7 g/dL (33.0-36.5); MONOCYTES # (AUTO) 0.1 X10'3 (0-0.9); RED BLOOD COUNT 1.61 X10'6 (4.70-6.10)
[2019-06-25 15:06] LABS: BASOPHILS # (AUTO) 0.1 X10'3 (0-0.2); BASOPHILS % (AUTO) 1.8 % (0-1); EOSINOPHILS # (AUTO) 0.2 X10'3 (0-0.9); EOSINOPHILS % (AUTO) 5.5 % (0-6); LYMPHOCYTES # (AUTO) 0.7 X10'3 (1.1-4.8); LYMPHOCYTES % (AUTO) 22.7 % (21-51); MEAN CORPUSCULAR HEMOGLOBIN 38.3 PG (27.0-31.0); MEAN CORPUSCULAR VOLUME 110.4 FL (78-98); MEAN PLATELET VOLUME 11.5 FL (7.4-10.4); MONOCYTES % (AUTO) 2.6 % (2-12); NEUTROPHILS % (AUTO) 67.4 % (42-75); RED CELL DISTRIBUTION WIDTH 15.2 % (11.5-14.5); WHITE BLOOD COUNT 2.9 X10'3 (4.5-11.0)
[2019-06-25 15:09] LABS: HEMATOCRIT 17.7 % (42.0-52.0); HEMOGLOBIN 6.2 g/dl (14.0-17.9)
[2019-06-25 15:10] LABS: PLATELET COUNT 40 X10'3 (140-440)
[2019-06-25 15:13] LABS: ALANINE AMINOTRANSFERASE 18 U/L (12-78); ALBUMIN 2.5 G/DL (3.4-5.0); ALBUMIN/GLOBULIN RATIO 0.8 (1.1-1.5); ALKALINE PHOSPHATASE 81 IU/L (46-116); ANION GAP 15 (8-16); ASPARTATE AMINO TRANSFERASE 8 U/L (10-37); BILIRUBIN,TOTAL 0.8 MG/DL (0.1-1.0); BLOOD UREA NITROGEN 26 MG/DL (7-18); BUN/CREATININE RATIO 18.1 (5.4-32.0); CALCIUM 8.1 MG/DL (8.5-10.1); CHLORIDE 99 MMOL/L (99-107); CREATININE 1.44 MG/DL (0.60-1.10); GLUCOSE 294 MG/DL (70-104); SODIUM 135 MMOL/L (135-145); TOTAL CARBON DIOXIDE 21.3 MMOL/L (24-32); TOTAL PROTEIN 5.8 G/DL (6.4-8.2); eGFR 50 ML/MIN
[2019-06-25 15:14] LABS: PARTIAL THROMBOPLASTIN TIME 22 SECONDS (22-32)
[2019-06-25 15:48] LABS: NUCLEATED RED BLOOD CELLS 6 /100WBC (0-0); TOTAL CELLS COUNTED 100
[2019-06-25] MEDS ORDERED: piperacillin/tazo 3.375gm/50ml 50 ML IV ONE (15:50)
[2019-06-25] MEDS ORDERED: normal saline 1000ML IV soln IV ONE (15:50)
[2019-06-25 15:56] LABS: PLATELET ESTIMATE DECREASED; POLYCHROMASIA FEW
[2019-06-25 15:57] LABS: ELLIPTOCYTES FEW; LARGE PLATELETS FEW; SCHISTOCYTES FEW; TEAR DROP CELLS FEW
--- NOTE | 2019-06-25 16:13 | NUR ---
DR. RIOS CALLED STATES PT NOT READY FOR ADMIT AND IS WAITING FOR " A REPEAT LACTIC" ALSO STATES THAT HE HAS ALREADY TALKED TO AND NOTIFIED DR. BUENROSTRO
--- NOTE | 2019-06-25 17:09 | NUR ---
SECOND LACTIC SENT TO LAB 8626
[2019-06-25 17:22] LABS: CLARITY,URINE SLIGHTLY CLOUDY (Clear); COLOR,URINE YELLOW (Yellow); GLUCOSE, URINE NEGATIVE (Neg); KETONES,URINE NEGATIVE (Neg); LEUKOCYTE ESTERASE ,URINE MODERATE (Neg); NITRITES, URINE NEGATIVE (Neg); OCCULT BLOOD,URINE SMALL (Neg); PROTEIN,URINE TRACE mg/dl (Neg); UA COLLECTION TYPE CLN CATCH MIDSTREAM; UROBILINOGEN,URINE 0.2 E.U/dL (0.2-1.0)
[2019-06-25 17:30] LABS: BACTERIA,URINE NONE SEEN /HPF (Neg); RBC,URINE 0-2 /HPF (0-2); WBC,URINE 30-50 /HPF (0-4)
[2019-06-25 17:31] LABS: HYALINE CASTS 0-3 /LPF (NEGATIVE); MUCUS STRANDS FEW /LPF (Neg); SQUAMOUS EPITHELIAL CELL,UR NONE SEEN /LPF (FEW); YEAST MANY /HPF (NEGATIVE)
[2019-06-25] MEDS ORDERED: furosemide 10 MG/1 ML 10ml inj IV ONE (17:55)
[2019-06-25 18:07] VITALS: BP 105/66
[2019-06-25] MEDS ORDERED: magnesium 4gm in 100ml NS 100 ML IV PRN (18:15)
[2019-06-25] MEDS ORDERED: mag hydrox/Alum hydrox/simeth 30ml oral suspension PO PRN (18:15)
[2019-06-25] MEDS ORDERED: acetaminophen 325mg tablet PO PRN (18:15)
[2019-06-25] MEDS ORDERED: ondansetron/PF 4mg/2ml inj IV PRN (18:15)
[2019-06-25] MEDS ORDERED: docusate sod 100mg capsule PO PRN (18:15)
[2019-06-25] MEDS ORDERED: potassium Cl 20 mEq SR tablet PO PRN ×2 (18:15)
[2019-06-25] MEDS ORDERED: potassium CL 10mEq/100ml bag 100 ML IV PRN ×2 (18:15)
[2019-06-25] MEDS ORDERED: magnesium 2GM in 50ml NS 50 ML IV PRN (18:15)
[2019-06-25 18:20] VITALS: BP 113/68
[2019-06-25] MEDS: HYDROcodone/acetaminophen 10/325mg tab PO PRN (19:30)
[2019-06-25] MEDS ORDERED: dextrose 50%-water 50ml dispensing syringe IV PRN ×2 (19:50)
[2019-06-25] MEDS ORDERED: MESSAGE TO PHARMACY PO ONE (19:50)
[2019-06-25] MEDS ORDERED: glucagon, human recombinant 1mg kit SUBCUT PRN (19:50)
[2019-06-25] MEDS ORDERED: dextrose ORAL solution 15 GM/59 ML bottle PO PRN ×2 (19:50)
[2019-06-25 20:00] VITALS: BP 104/59
[2019-06-25] MEDS ORDERED: carVEDilol 3.125mg tablet PO SCH (20:00)
[2019-06-25] MEDS: pantoprazole 40MG/NS 100ML BAG 100 ML IV SCH ×2 (20:00→22:12)
[2019-06-25 20:11] VITALS: BP 104/59
[2019-06-25] MEDS: ipratropium/albuterol 3ml nebule NEB SCH (20:23)
[2019-06-25] MEDS: tamsulosin 0.4mg capsule PO SCH (22:06)
[2019-06-25] MEDS: carVEDilol 3.125mg tablet PO SCH (22:06)
[2019-06-25] MEDS: lactulose 20gm/30ml cup PO SCH (22:06)
[2019-06-25] MEDS: methylPREDNISolone sod succ/PF 40mg inj. IV SCH (22:06)
[2019-06-25 22:11] LABS: HEMOGLOBIN A1C 8.3 % (4.5-6.2)
[2019-06-25] MEDS: insulin glargine (Lantus) pen - multi-dose SQ SCH (22:29)
[2019-06-25 23:01] LABS: MEAN CORPUSCULAR HGB CONC 35.2 g/dL (33.0-36.5); MEAN CORPUSCULAR VOLUME 102.1 FL (78-98); MEAN PLATELET VOLUME 10.9 FL (7.4-10.4); RED BLOOD COUNT 1.95 X10'6 (4.70-6.10); RED CELL DISTRIBUTION WIDTH 20.2 % (11.5-14.5); WHITE BLOOD COUNT 2.1 X10'3 (4.5-11.0)
[2019-06-25 23:24] LABS: HEMATOCRIT 19.9 % (42.0-52.0); PLATELET COUNT 24 X10'3 (140-440)
--- NOTE | 2019-06-25 23:37 | NUR ---
Received critical labs: H/H 06/03.[address] Monroe notifiied and ordered one unit of PRBC and one unit of platelets.
[2019-06-26] VITALS (21 sets, daily range): BP systolic 94–131; BP diastolic 53–97
[2019-06-26] MEDS: pantoprazole 40MG/NS 100ML BAG 100 ML IV SCH ×2 (01:00→07:44)
[2019-06-26] MEDS: ipratropium/albuterol 3ml nebule NEB SCH ×4 (02:17→21:06)
[2019-06-26] MEDS: HYDROcodone/acetaminophen 10/325mg tab PO PRN ×4 (02:49→19:58)
[2019-06-26] MEDS: lactulose 20gm/30ml cup PO SCH ×4 (03:02→19:39)
--- NOTE | 2019-06-26 06:30 | NUR ---
Patient in room DAHLIA 358. I have received report from INGRID DAI and had the opportunity to ask questions and assume patient care.
--- NOTE | 2019-06-26 06:33 | NUR ---
Problems reprioritized. Patient report given, questions answered & plan of care reviewed with Miles RN.
[2019-06-26] MEDS ORDERED: duloxetine 20mg capsule.DR PO SCH (08:00)
[2019-06-26] MEDS: K and/or MAG REPLACEMENT MC SCH (08:00)
[2019-06-26] MEDS ORDERED: tamsulosin 0.4mg capsule PO SCH (08:00)
[2019-06-26] MEDS: duloxetine 20mg capsule.DR PO SCH (09:30)
[2019-06-26] MEDS: carVEDilol 3.125mg tablet PO SCH ×2 (09:31→19:48)
[2019-06-26] MEDS: folic acid 1mg tablet PO SCH (09:31)
[2019-06-26] MEDS: loratadine 10mg tablet PO SCH (09:32)
[2019-06-26] MEDS: montelukast 10mg tablet PO SCH (09:32)
[2019-06-26] MEDS: methylPREDNISolone sod succ/PF 40mg inj. IV SCH ×2 (09:35→19:45)
[2019-06-26 12:49] LABS: HEMATOCRIT 22.2 % (42.0-52.0); RED BLOOD COUNT 2.29 X10'6 (4.70-6.10); WHITE BLOOD COUNT 1.9 X10'3 (4.5-11.0)
[2019-06-26 12:50] LABS: HEMOGLOBIN 7.8 g/dl (14.0-17.9); MEAN CORPUSCULAR HEMOGLOBIN 34.1 PG (27.0-31.0); MEAN CORPUSCULAR HGB CONC 35.1 g/dL (33.0-36.5); MEAN CORPUSCULAR VOLUME 97.1 FL (78-98); RED CELL DISTRIBUTION WIDTH 21.9 % (11.5-14.5)
[2019-06-26] MEDS ORDERED: LIDOcaine Viscous 15ml cup ONE (12:59)
[2019-06-26] MEDS ORDERED: MIDAZolam 5mg/5ml vial ONE (12:59)
[2019-06-26] MEDS ORDERED: fentaNYL/PF 50MCG/1 ML 2ML syringe ONE (12:59)
[2019-06-26 13:01] LABS: PLATELET COUNT 23 X10'3 (140-440)
[2019-06-26 13:11] LABS: ALANINE AMINOTRANSFERASE 15 U/L (12-78); ALBUMIN 2.4 G/DL (3.4-5.0); ALBUMIN/GLOBULIN RATIO 0.8 (1.1-1.5); ALKALINE PHOSPHATASE 67 IU/L (46-116); ANION GAP 10 (8-16); ASPARTATE AMINO TRANSFERASE 3 U/L (10-37); BLOOD UREA NITROGEN 26 MG/DL (7-18); BUN/CREATININE RATIO 23.6 (5.4-32.0); CALCIUM 7.9 MG/DL (8.5-10.1); CHLORIDE 102 MMOL/L (99-107); GLUCOSE 286 MG/DL (70-104); POTASSIUM 4.6 MMOL/L (3.5-5.1); SODIUM 135 MMOL/L (135-145); TOTAL CARBON DIOXIDE 23.4 MMOL/L (24-32); TOTAL PROTEIN 5.5 G/DL (6.4-8.2); eGFR 68 ML/MIN
[2019-06-26 13:15] LABS: MAGNESIUM 1.6 MG/DL (1.5-2.4)
--- NOTE | 2019-06-26 16:36 | NUR ---
DM/Malnutrition consults: Per DM consult "states no DM Dx; please educate." RD unable to provide DM without official DM DX per MD and pt must be aware. A1C 8.3 up from 6.1 in April though pt was on steroids during current, May, and April admits likely influencing A1C as well. Per pharmacy pt does not take steroids on home meds. Will need DM ed prior to d/c once clear that official DX has been delivered. Pt admit w/ syncope r/t anemia per MD note. Pt hx prior heavy etoh now sober since March and likely cirrhosis per MD note. Pt also hx ileostomy s/p total colectomy secondary to c.diff infection. Pt takes care of own ileostomy per EMR; no output noted at this time. Advanced to clear liquids currently pending PO. Pt has no significant wt loss hx, no edema/wounds, no weakness, and w/ PO pending lacks minimum malnutrition criteria at this time. Will continue to monitor. Rec: 1. advance diet per MD to carb controlled 2. MVI/thiamin/folic given hx etoh per MD approval 3. DM ed once stable prior to d/c 4. wt per rx Addendum: 06/26/19 at [address] Amended: Links added.
--- NOTE | 2019-06-26 18:10 | NUR ---
Patient in room DAHLIA 358. I have received report from Miles DAI and had the opportunity to ask questions and assume patient care.
--- NOTE | 2019-06-26 18:30 | NUR ---
Problems reprioritized. Patient report given, questions answered & plan of care reviewed with INGRID DAI.
[2019-06-26] MEDS: insulin Lispro (HumaLOG) vial - multi-dose SQ SCH ×2 (19:45→21:30)
[2019-06-26 19:48] LABS: HEMATOCRIT 22.3 % (42.0-52.0); HEMOGLOBIN 7.6 g/dl (14.0-17.9); MEAN CORPUSCULAR HEMOGLOBIN 33.3 PG (27.0-31.0); MEAN CORPUSCULAR HGB CONC 34.2 g/dL (33.0-36.5); MEAN CORPUSCULAR VOLUME 97.4 FL (78-98); MEAN PLATELET VOLUME 8.8 FL (7.4-10.4); PLATELET COUNT 55 X10'3 (140-440); RED BLOOD COUNT 2.29 X10'6 (4.70-6.10); RED CELL DISTRIBUTION WIDTH 21.8 % (11.5-14.5); WHITE BLOOD COUNT 1.7 X10'3 (4.5-11.0)
[2019-06-26] MEDS: insulin glargine (Lantus) pen - multi-dose SQ SCH (21:27)
[2019-06-26] MEDS: tamsulosin 0.4mg capsule PO SCH (21:31)
[2019-06-27] VITALS: BP 110/70
[2019-06-27] MEDS: lactulose 20gm/30ml cup PO SCH ×4 (02:00→20:24)
[2019-06-27] MEDS: ipratropium/albuterol 3ml nebule NEB SCH ×4 (03:06→21:06)
--- NOTE | 2019-06-27 05:50 | NUR ---
Refused RN blood draw for labs. Stated that he wanted "the girls from lab" to do it, gave the names of "Glendy" or possible "Neelam."
--- NOTE | 2019-06-27 06:42 | NUR ---
Problems reprioritized. Patient report given, questions answered & plan of care reviewed with Frances DAI.
[2019-06-27] MEDS: HYDROcodone/acetaminophen 10/325mg tab PO PRN ×2 (06:45→21:57)
[2019-06-27] MEDS: K and/or MAG REPLACEMENT MC SCH (08:00)
[2019-06-27] MEDS: carVEDilol 3.125mg tablet PO SCH ×2 (08:20→20:24)
[2019-06-27] MEDS: montelukast 10mg tablet PO SCH (08:20)
[2019-06-27] MEDS: pantoprazole 40mg Tablet.DR PO SCH (08:20)
[2019-06-27] MEDS: loratadine 10mg tablet PO SCH (08:20)
[2019-06-27] MEDS: duloxetine 20mg capsule.DR PO SCH (08:20)
[2019-06-27] MEDS: folic acid 1mg tablet PO SCH (08:20)
[2019-06-27] MEDS: methylPREDNISolone sod succ/PF 40mg inj. IV SCH ×2 (08:21→20:25)
[2019-06-27 08:30] VITALS: BP 116/74
[2019-06-27] MEDS: insulin Lispro (HumaLOG) vial - multi-dose SQ SCH ×3 (08:42→21:37)
[2019-06-27 08:54] LABS: ALANINE AMINOTRANSFERASE 17 U/L (12-78); ALBUMIN 2.6 G/DL (3.4-5.0); ALBUMIN/GLOBULIN RATIO 0.8 (1.1-1.5); ALKALINE PHOSPHATASE 68 IU/L (46-116); ANION GAP 9 (8-16); ASPARTATE AMINO TRANSFERASE 7 U/L (10-37); BILIRUBIN,TOTAL 0.6 MG/DL (0.1-1.0); BLOOD UREA NITROGEN 24 MG/DL (7-18); BUN/CREATININE RATIO 21.4 (5.4-32.0); CALCIUM 8.1 MG/DL (8.5-10.1); CHLORIDE 102 MMOL/L (99-107); CREATININE 1.12 MG/DL (0.60-1.10); GLUCOSE 268 MG/DL (70-104); MAGNESIUM 1.6 MG/DL (1.5-2.4); POTASSIUM 4.2 MMOL/L (3.5-5.1); SODIUM 135 MMOL/L (135-145); TOTAL CARBON DIOXIDE 24.3 MMOL/L (24-32); TOTAL PROTEIN 5.9 G/DL (6.4-8.2); eGFR 66 ML/MIN
[2019-06-27 09:59] LABS: HEMATOCRIT 24.3 % (42.0-52.0); HEMOGLOBIN 8.4 g/dl (14.0-17.9); MEAN CORPUSCULAR HEMOGLOBIN 33.4 PG (27.0-31.0); MEAN CORPUSCULAR HGB CONC 34.4 g/dL (33.0-36.5); MEAN CORPUSCULAR VOLUME 97.2 FL (78-98); MEAN PLATELET VOLUME 7.9 FL (7.4-10.4); RED CELL DISTRIBUTION WIDTH 21.3 % (11.5-14.5); WHITE BLOOD COUNT 1.5 X10'3 (4.5-11.0)
[2019-06-27 10:04] LABS: PLATELET COUNT 55 X10'3 (140-440)
--- NOTE | 2019-06-27 11:30 | NUR ---
Educated patient on DM and insulin. Patient states that he will not be doing this at home. Educated patient on the importance of keeping his BS at a normal level. DM survival guide has been given to patient as well. Patient agrees to take insulin.
[2019-06-27 12:00] VITALS: BP 110/71
--- NOTE | 2019-06-27 14:02 | NUR ---
Patient refused insulin, states that he was not told that he would be taking insulin through out the day. Patient was educated this morning and throughout the day on BG levels. Patient has stated to Jozef with nutrition that he doesn't know anything about being DM even after he has been educated through out the shift. Patient states that the MD didn't talk to him about being DM and having medications. I will notify Dr. Arango of this event.
[2019-06-27 15:54] LABS: HEMATOCRIT 22.1 % (42.0-52.0); HEMOGLOBIN 7.5 g/dl (14.0-17.9); MEAN CORPUSCULAR HEMOGLOBIN 33.1 PG (27.0-31.0); MEAN CORPUSCULAR HGB CONC 34.1 g/dL (33.0-36.5); MEAN CORPUSCULAR VOLUME 96.9 FL (78-98); MEAN PLATELET VOLUME 8.1 FL (7.4-10.4); RED BLOOD COUNT 2.28 X10'6 (4.70-6.10); RED CELL DISTRIBUTION WIDTH 21.5 % (11.5-14.5); WHITE BLOOD COUNT 1.4 X10'3 (4.5-11.0)
[2019-06-27] MEDS ORDERED: acetaminophen 325mg tablet PO PRN (15:55)
--- NOTE | 2019-06-27 16:54 | NUR ---
F/u: Per RN pt has received DM review and official DX earlier today. Pt seen by RD and reports no hx DM and no DX DM and wants to check w/ PCP for official DM DX. Pt A1C was 6.1 prior to multiple hospital admits where pt has been on steroids so A1C likely effected by that. RD left written DM ed w/ RD contact information at pt bedside and encouraged to f/u w/ PCP for official DM DX. Pt requests diet soda TIDWM, chef's assistant salads at lunches, no cooked veggies since won't eat; dietary notified of preferences. Pt is aware he will still receive vegetables w/ meals since necessary but will try to accommodate raw veggies w/ salads. Addendum: 06/27/19 at [address] Amended: Links added.
[2019-06-27 17:03] LABS: PLATELET COUNT 56 X10'3 (140-440)
--- NOTE | 2019-06-27 18:11 | NUR ---
Problems reprioritized. Patient report given, questions answered & plan of care reviewed with Roni DAI.
--- NOTE | 2019-06-27 18:59 | NUR ---
Patient in room DAHLIA 358. I have received report from SUHAS Daniels and had the opportunity to ask questions and assume patient care.
[2019-06-27 20:00] VITALS: BP 108/61
[2019-06-27] MEDS: tamsulosin 0.4mg capsule PO SCH (20:23)
[2019-06-27] MEDS ORDERED: ipratropium/albuterol 3ml nebule NEB PRN (20:40)
[2019-06-27] MEDS: insulin glargine (Lantus) pen - multi-dose SQ SCH (21:40)
[2019-06-28] VITALS: BP 111/69
[2019-06-28] MEDS: lactulose 20gm/30ml cup PO SCH ×4 (02:06→20:51)
[2019-06-28] MEDS: HYDROcodone/acetaminophen 10/325mg tab PO PRN ×3 (05:48→23:02)
--- NOTE | 2019-06-28 06:25 | NUR ---
Patient in room DAHLIA 358. I have received report from SUHAS Tamayo and had the opportunity to ask questions and assume patient care.
--- NOTE | 2019-06-28 06:33 | NUR ---
Problems reprioritized. Patient report given, questions answered & plan of care reviewed with SUHAS Cummings.
[2019-06-28 07:30] VITALS: BP 115/64
[2019-06-28] MEDS: K and/or MAG REPLACEMENT MC SCH (08:00)
[2019-06-28 08:22] LABS: BASOPHILS % (AUTO) 0.8 % (0-1); EOSINOPHILS % (AUTO) 1.3 % (0-6); HEMOGLOBIN 7.4 g/dl (14.0-17.9); LYMPHOCYTES # (AUTO) 0.2 X10'3 (1.1-4.8); MONOCYTES % (AUTO) 3.7 % (2-12); NEUTROPHILS # (AUTO) 0.7 X10'3 (1.8-7.7); NEUTROPHILS % (AUTO) 72.2 % (42-75); RED BLOOD COUNT 2.25 X10'6 (4.70-6.10); RED CELL DISTRIBUTION WIDTH 20.8 % (11.5-14.5)
[2019-06-28 08:36] LABS: ALANINE AMINOTRANSFERASE 14 U/L (12-78); ALBUMIN 2.4 G/DL (3.4-5.0); ALBUMIN/GLOBULIN RATIO 0.8 (1.1-1.5); ALKALINE PHOSPHATASE 57 IU/L (46-116); ANION GAP 6 (8-16); ASPARTATE AMINO TRANSFERASE 6 U/L (10-37); BILIRUBIN,TOTAL 0.7 MG/DL (0.1-1.0); BLOOD UREA NITROGEN 22 MG/DL (7-18); BUN/CREATININE RATIO 19.3 (5.4-32.0); CALCIUM 7.9 MG/DL (8.5-10.1); CHLORIDE 101 MMOL/L (99-107); CREATININE 1.14 MG/DL (0.60-1.10); GLUCOSE 270 MG/DL (70-104); MAGNESIUM 1.4 MG/DL (1.5-2.4); POTASSIUM 4.5 MMOL/L (3.5-5.1); SODIUM 134 MMOL/L (135-145); TOTAL PROTEIN 5.3 G/DL (6.4-8.2); eGFR 65 ML/MIN
[2019-06-28] MEDS: methylPREDNISolone sod succ/PF 40mg inj. IV SCH ×2 (08:43→20:53)
[2019-06-28] MEDS: pantoprazole 40mg Tablet.DR PO SCH (08:43)
[2019-06-28] MEDS: loratadine 10mg tablet PO SCH (08:44)
[2019-06-28] MEDS: carVEDilol 3.125mg tablet PO SCH ×2 (08:44→20:52)
[2019-06-28] MEDS: folic acid 1mg tablet PO SCH (08:45)
[2019-06-28] MEDS: montelukast 10mg tablet PO SCH (08:45)
[2019-06-28] MEDS: duloxetine 20mg capsule.DR PO SCH (08:45)
[2019-06-28] MEDS: insulin Lispro (HumaLOG) vial - multi-dose SQ SCH ×3 (09:02→18:59)
[2019-06-28 09:18] LABS: HEMATOCRIT 21.9 % (42.0-52.0)
[2019-06-28 09:19] LABS: PLATELET COUNT 47 X10'3 (140-440)
[2019-06-28] MEDS: ipratropium/albuterol 3ml nebule NEB SCH ×3 (09:58→21:00)
[2019-06-28 11:40] VITALS: BP 116/57
--- NOTE | 2019-06-28 11:41 | NUR ---
06/26/[address] SAMPSON FOUND 2 STENTS IN CBD,WANTED FOLLOW UP WITH DR THAT PLACED STENTS. UPON REVIEWING PT'S OLD CHARTS & PHONE CALLS TO [facility] PT DID NOT HAVE ANY PROCEDURES THERE. WE FOUND PT HAD STENTS X2 PLACED 11/13/15. MARCH [address] IBARRA & DR BONNIE MURPHY/HOSPITALIST ABOUT STENTS X2 REMAIN IN PT'S CBD. PT WAS SICK. DR IBARRA DID NOT WANT TO REMOVE THEM @ THAT TIME. HE WANTED PT TO FOLLOW UP WITH EUS & STENT REPLACEMENT. 06/27/19 @ [address] IBARRA RETURNED MY PHONE CALL. PLAN WAS TO SEND PT HOME TO FOLLOW UP WITH DR IBARRA. DR IBARRA WANTED TO SET UP FOLLOW UP APPT FOR ERCP FOR STENT REMOVAL. PAPERWORK FAXED TO DR IBARRA'S OFFICE. I CALLED DR RIOS WITH DR IBARRA'S PLAN OF CARE.
--- NOTE | 2019-06-28 14:00 | NUR ---
Accidentally covered the patient for a 255 sugar instead of a 285 sugar. The patient would have received 36 units but he received 32 instead. I don't believe that I would have given him 36 units anyway since the most he had received was 26, and the most before that was 18. The patient came down to 147. I also believe that the patient was up to 285 because he had two bowls of fruit and a bowl of cottage cheese after breakfast. So the 32 units ended up being successful for him in the long run.
[2019-06-28 18:00] VITALS: BP 104/62
--- NOTE | 2019-06-28 18:15 | NUR ---
Problems reprioritized. Patient report given, questions answered & plan of care reviewed with SUHAS Tamayo.
[2019-06-28 18:16] LABS: NUCLEATED RED BLOOD CELLS 2 /100WBC (0-0); TOTAL CELLS COUNTED 100
[2019-06-28 18:18] LABS: PLATELET ESTIMATE DECREASED
[2019-06-28 18:19] LABS: ANISOCYTOSIS 2+; POLYCHROMASIA FEW
--- NOTE | 2019-06-28 18:42 | NUR ---
Patient in room DAHLIA 358. I have received report from SUHAS Cummings and had the opportunity to ask questions and assume patient care.
[2019-06-28] MEDS: tamsulosin 0.4mg capsule PO SCH (20:52)
[2019-06-28] MEDS: insulin glargine (Lantus) pen - multi-dose SQ SCH (21:08)
[2019-06-29 00:43] VITALS: BP 97/61
[2019-06-29] MEDS: lactulose 20gm/30ml cup PO SCH ×4 (01:58→19:42)
--- NOTE | 2019-06-29 06:29 | NUR ---
Patient in room DAHLIA 358. I have received report from Roni DAI and had the opportunity to ask questions and assume patient care.
--- NOTE | 2019-06-29 06:31 | NUR ---
Problems reprioritized. Patient report given, questions answered & plan of care reviewed with SUHAS Angeles.
[2019-06-29 07:09] VITALS: BP 112/59
[2019-06-29] MEDS: K and/or MAG REPLACEMENT MC SCH (07:31)
[2019-06-29] MEDS: montelukast 10mg tablet PO SCH (07:38)
[2019-06-29] MEDS: folic acid 1mg tablet PO SCH (07:38)
[2019-06-29] MEDS: carVEDilol 3.125mg tablet PO SCH ×2 (07:38→19:42)
[2019-06-29] MEDS: duloxetine 20mg capsule.DR PO SCH (07:38)
[2019-06-29] MEDS: loratadine 10mg tablet PO SCH (07:38)
[2019-06-29] MEDS: pantoprazole 40mg Tablet.DR PO SCH (07:38)
[2019-06-29] MEDS: methylPREDNISolone sod succ/PF 40mg inj. IV SCH ×2 (07:39→19:42)
[2019-06-29] MEDS: HYDROcodone/acetaminophen 10/325mg tab PO PRN ×3 (07:39→23:31)
[2019-06-29 07:55] LABS: HEMOGLOBIN 7.8 g/dl (14.0-17.9); LYMPHOCYTES # (AUTO) 0.3 X10'3 (1.1-4.8); WHITE BLOOD COUNT 1.3 X10'3 (4.5-11.0)
[2019-06-29 07:57] LABS: EOSINOPHILS % (AUTO) 1.8 % (0-6); HEMATOCRIT 22.5 % (42.0-52.0); LYMPHOCYTES % (AUTO) 21.7 % (21-51); MEAN CORPUSCULAR HEMOGLOBIN 33.4 PG (27.0-31.0); MEAN CORPUSCULAR HGB CONC 34.6 g/dL (33.0-36.5); MEAN CORPUSCULAR VOLUME 96.4 FL (78-98); MEAN PLATELET VOLUME 8.1 FL (7.4-10.4); MONOCYTES % (AUTO) 3.3 % (2-12); NEUTROPHILS % (AUTO) 72.2 % (42-75); RED BLOOD COUNT 2.34 X10'6 (4.70-6.10); RED CELL DISTRIBUTION WIDTH 20.4 % (11.5-14.5)
[2019-06-29 08:08] LABS: ALANINE AMINOTRANSFERASE 13 U/L (12-78); ALBUMIN 2.5 G/DL (3.4-5.0); ALBUMIN/GLOBULIN RATIO 0.9 (1.1-1.5); ALKALINE PHOSPHATASE 57 IU/L (46-116); ANION GAP 6 (8-16); ASPARTATE AMINO TRANSFERASE 7 U/L (10-37); BILIRUBIN,TOTAL 0.6 MG/DL (0.1-1.0); BLOOD UREA NITROGEN 23 MG/DL (7-18); BUN/CREATININE RATIO 23.7 (5.4-32.0); CALCIUM 8.4 MG/DL (8.5-10.1); CHLORIDE 101 MMOL/L (99-107); CREATININE 0.97 MG/DL (0.60-1.10); GLUCOSE 157 MG/DL (70-104); MAGNESIUM 1.4 MG/DL (1.5-2.4); POTASSIUM 4.5 MMOL/L (3.5-5.1); SODIUM 135 MMOL/L (135-145); TOTAL CARBON DIOXIDE 28.1 MMOL/L (24-32); TOTAL PROTEIN 5.3 G/DL (6.4-8.2); eGFR 78 ML/MIN
[2019-06-29 08:30] LABS: PLATELET COUNT 34 X10'3 (140-440)
[2019-06-29] MEDS: ipratropium/albuterol 3ml nebule NEB SCH ×3 (08:59→20:08)
[2019-06-29] MEDS: insulin Lispro (HumaLOG) vial - multi-dose SQ SCH ×3 (09:10→19:00)
[2019-06-29 11:29] VITALS: BP 112/58
[2019-06-29 13:42] LABS: ANISOCYTOSIS 3+; PLATELET ESTIMATE DECREASED; TOTAL CELLS COUNTED 100
[2019-06-29 13:43] LABS: HYPOCHROMASIA 2+; ROULEAUX 1+; SCHISTOCYTES FEW
[2019-06-29] MEDS: cyclobenzaprine 10mg tablet PO PRN ×2 (15:14→23:31)
--- NOTE | 2019-06-29 18:28 | NUR ---
Problems reprioritized. Patient report given, questions answered & plan of care reviewed with Roni DAI.
--- NOTE | 2019-06-29 18:43 | NUR ---
Patient in room DAHLIA 358. I have received report from SUHAS Angeles and had the opportunity to ask questions and assume patient care.
[2019-06-29] MEDS: fluconazole-Diflucan 200mg/NS 100 ML IV SCH (19:44)
[2019-06-29] MEDS: insulin glargine (Lantus) pen - multi-dose SQ SCH (21:21)
[2019-06-29] MEDS: tamsulosin 0.4mg capsule PO SCH (21:23)
[2019-06-29 23:55] VITALS: BP 115/71
[2019-06-30] MEDS: lactulose 20gm/30ml cup PO SCH ×4 (02:02→21:09)
[2019-06-30] MEDS ORDERED: iohexol 300mg/ml 100ml inj. ONE (06:07)
--- NOTE | 2019-06-30 06:32 | NUR ---
Problems reprioritized. Patient report given, questions answered & plan of care reviewed with SUHAS Valdez.
[2019-06-30 07:40] LABS: ALANINE AMINOTRANSFERASE 14 U/L (12-78); ALBUMIN 2.6 G/DL (3.4-5.0); ALBUMIN/GLOBULIN RATIO 0.9 (1.1-1.5); ALKALINE PHOSPHATASE 56 IU/L (46-116); ANION GAP 5 (8-16); ASPARTATE AMINO TRANSFERASE 7 U/L (10-37); BILIRUBIN,TOTAL 0.8 MG/DL (0.1-1.0); BLOOD UREA NITROGEN 28 MG/DL (7-18); BUN/CREATININE RATIO 27.2 (5.4-32.0); CALCIUM 8.5 MG/DL (8.5-10.1); CHLORIDE 101 MMOL/L (99-107); CREATININE 1.03 MG/DL (0.60-1.10); GLUCOSE 165 MG/DL (70-104); MAGNESIUM 1.5 MG/DL (1.5-2.4); SODIUM 136 MMOL/L (135-145); TOTAL CARBON DIOXIDE 29.7 MMOL/L (24-32); TOTAL PROTEIN 5.6 G/DL (6.4-8.2); eGFR 73 ML/MIN
[2019-06-30 08:00] VITALS: BP 92/57
[2019-06-30] MEDS: K and/or MAG REPLACEMENT MC SCH (08:00)
[2019-06-30 08:16] LABS: HEMOGLOBIN 8.1 g/dl (14.0-17.9); WHITE BLOOD COUNT 1.5 X10'3 (4.5-11.0)
[2019-06-30 08:18] LABS: HEMATOCRIT 23.5 % (42.0-52.0); MEAN CORPUSCULAR HEMOGLOBIN 33.8 PG (27.0-31.0); MEAN CORPUSCULAR HGB CONC 34.6 g/dL (33.0-36.5); MEAN CORPUSCULAR VOLUME 97.6 FL (78-98); MEAN PLATELET VOLUME 8.5 FL (7.4-10.4); RED BLOOD COUNT 2.41 X10'6 (4.70-6.10); RED CELL DISTRIBUTION WIDTH 20.3 % (11.5-14.5)
[2019-06-30 08:54] LABS: PLATELET COUNT 31 X10'3 (140-440)
[2019-06-30] MEDS: ipratropium/albuterol 3ml nebule NEB SCH ×3 (09:00→20:56)
[2019-06-30] MEDS: insulin Lispro (HumaLOG) vial - multi-dose SQ SCH ×4 (09:17→21:17)
[2019-06-30] MEDS: methylPREDNISolone sod succ/PF 40mg inj. IV SCH ×2 (09:30→21:09)
[2019-06-30] MEDS: pantoprazole 40mg Tablet.DR PO SCH (09:30)
[2019-06-30] MEDS: fluconazole-Diflucan 200mg/NS 100 ML IV SCH (09:30)
[2019-06-30] MEDS: cyclobenzaprine 10mg tablet PO PRN ×2 (09:31→17:43)
[2019-06-30] MEDS: montelukast 10mg tablet PO SCH (09:31)
[2019-06-30] MEDS: carVEDilol 3.125mg tablet PO SCH ×2 (09:31→19:33)
[2019-06-30] MEDS: HYDROcodone/acetaminophen 10/325mg tab PO PRN ×2 (09:33→16:32)
[2019-06-30] MEDS: folic acid 1mg tablet PO SCH (09:33)
[2019-06-30] MEDS: duloxetine 20mg capsule.DR PO SCH (09:48)
[2019-06-30] MEDS: loratadine 10mg tablet PO SCH (09:48)
[2019-06-30 10:53] LABS: TOTAL CELLS COUNTED 100
[2019-06-30 10:54] LABS: ANISOCYTOSIS 3+; HYPOCHROMASIA 2+; PLATELET ESTIMATE DECREASED; ROULEAUX 1+; SCHISTOCYTES FEW
[2019-06-30 12:00] VITALS: BP 95/57
--- NOTE | 2019-06-30 18:15 | NUR ---
Dr. Caballero here to see pt and will attempt to transfer pt to [facility] tonight or tomorrow. Addendum: 06/30/19 at 2339 by My Gonzales RN Amended: Links added.
--- NOTE | 2019-06-30 18:31 | NUR ---
Problems reprioritized. Patient report given, questions answered & plan of care reviewed with SUHAS Pepe.
[2019-06-30 20:00] VITALS: BP 91/55
--- NOTE | 2019-06-30 20:30 | NUR ---
Report given to Lupe DAI at [facility] oncology floor. Pt will go to room 103A. Awaiting transfer. Addendum: 06/30/19 at 2339 by My Gonzales RN Amended: Links added.
[2019-06-30] MEDS: tamsulosin 0.4mg capsule PO SCH (21:09)
[2019-06-30] MEDS: insulin glargine (Lantus) pen - multi-dose SQ SCH (21:19)
[2019-07-01] MEDS ORDERED: fluconazole 100mg tablet PO SCH (08:00)
== END 2019-06-30 23:00 | disposition short-term general hospital (02) | DRG 377 ==
LOC: ER 14:17 → EDBEDREQSVC 19:05 → SUR 3N 20:00 → CMPBEDREQ 06-27 19:44
PROVIDERS: ADMIT Family Medicine; ATTEND Family Medicine
PROC: 30233N1 Transfusion of Nonautologous Red Blood Cells into Peripheral Vein, Percutaneous Approach (ICD-10-PCS; principal; 2019-06-25)
PROC: 30233N1 Transfusion of Nonautologous Red Blood Cells into Peripheral Vein, Percutaneous Approach (ICD-10-PCS; 2019-06-26)
PROC: 30233R1 Transfusion of Nonautologous Platelets into Peripheral Vein, Percutaneous Approach (ICD-10-PCS; 2019-06-26)
PROC: 0DB68ZX Excision of Stomach, Via Natural or Artificial Opening Endoscopic, Diagnostic (ICD-10-PCS; 2019-06-26)
PROC: BW211ZZ Computerized Tomography (CT Scan) of Abdomen and Pelvis using Low Osmolar Contrast (ICD-10-PCS; 2019-06-30)
DX: K29.71 Gastritis, unspecified, with bleeding (principal); I21.A1 Myocardial infarction type 2; K85.90 Acute pancreatitis without necrosis or infection, unspecified; J96.10 Chronic respiratory failure, unspecified whether with hypoxia or hypercapnia; D61.818 Other pancytopenia; A04.72 Enterocolitis due to Clostridium difficile, not specified as recurrent; N17.9 Acute kidney failure, unspecified; I10 Essential (primary) hypertension; J44.9 Chronic obstructive pulmonary disease, unspecified; D69.59 Other secondary thrombocytopenia; F32.9 Major depressive disorder, single episode, unspecified; K76.9 Liver disease, unspecified; I95.9 Hypotension, unspecified; E11.65 Type 2 diabetes mellitus with hyperglycemia; M54.2 Cervicalgia; K70.30 Alcoholic cirrhosis of liver without ascites; R00.0 Tachycardia, unspecified; R55 Syncope and collapse; K21.9 Gastro-esophageal reflux disease without esophagitis; N40.0 Benign prostatic hyperplasia without lower urinary tract symptoms; Z86.19 Personal history of other infectious and parasitic diseases; Z87.891 Personal history of nicotine dependence; Z88.8 Allergy status to other drugs, medicaments and biological substances; Z79.899 Other long term (current) drug therapy; Z90.49 Acquired absence of other specified parts of digestive tract; Z99.81 Dependence on supplemental oxygen
CPT/HCPCS: 36415; 36600; 43239; 71045; 72141; 72148; 74177; 80053; 81001; 82803; 82948; 83036; 83605; 83735; 83880; 84145; 84484; 85018; 85025; 85027; 85610; 85730; 86885; 86900; 86901; 86920; 87040; 87077; 87081; 87088; 87186; 88305; 88342; 93005; 94640; 94667; 94760; 96365; 96375; 97110; 97161; 97530; 99152; 99285; A4620; C9113; G0378; J1450; J1815; J1940; J2250; J2543; J2920; J2930; J3010; J7040; P9016; P9035; Q9967

== ENCOUNTER 2019-07-12 10:36 | Day surgery (SDC) | payer MEDICARE, MEDICAID ==
[~2019-07-12] VITALS: Ht 160 cm; Wt 83.6 kg
[2019-07-12] VITALS (9 sets, daily range): BP systolic 79–102; BP diastolic 44–69
[~2019-07-12 10:36] MED LIST changes: -LEVO500T89 PO; -PRED10TA PO
[2019-07-12] MEDS ORDERED: normal saline 1000ml 1,000 ML IV PRN (11:35)
[2019-07-12 12:14] LABS: HEMATOCRIT 29.5 % (42.0-52.0); MEAN CORPUSCULAR HEMOGLOBIN 31.3 PG (27.0-31.0); MEAN CORPUSCULAR VOLUME 92.2 FL (78-98); MEAN PLATELET VOLUME 10.7 FL (7.4-10.4)
[2019-07-12 12:45] LABS: PLATELET COUNT 30 X10'3 (140-440)
[2019-07-12] MEDS ORDERED: PRED10TA23 PO (13:04)
[2019-07-12] MEDS ORDERED: FERR325T32 PO (13:04)
[2019-07-12] MEDS ORDERED: ONDA8TAB12 PO (13:04)
[2019-07-12] MEDS ORDERED: PROC10TA10 PO (13:04)
[2019-07-12 13:32] LABS: TOTAL CELLS COUNTED 100
[2019-07-12 13:33] LABS: ANISOCYTOSIS 1+; LARGE PLATELETS FEW; PLATELET ESTIMATE DECREASED
[2019-07-12] MEDS ORDERED: LIDOcaine 1% (10mg/ml) 2ml vial SQ ONE (14:00)
[2019-07-12] MEDS ORDERED: fentaNYL/PF 50MCG/1 ML 2ML syringe IV PRN (14:00)
[2019-07-12] MEDS ORDERED: midazolam 2 mg/2 ml injection IV PRN (14:00)
[2019-07-12] MEDS ORDERED: heparin sodium, porcine/PF 100unit/ml 5ML syringe ICATH ONE (14:00)
[2019-07-12] MEDS ORDERED: heparin sodium, porcine/PF 100unit/ml 5ML syringe ONE (14:13)
[2019-07-12] MEDS ORDERED: midazolam 2 mg/2 ml injection ONE ×2 (14:13→14:38)
[2019-07-12] MEDS ORDERED: LIDOcaine 1%/PF 5ML 10 MG/ML VIAL ONE (14:13)
[2019-07-12] MEDS ORDERED: fentaNYL/PF 50MCG/1 ML 2ML syringe ONE ×3 (14:14→14:46)
== END 2019-07-12 16:45 | disposition home or self-care (01) ==
LOC: SSTAY O 10:36
PROVIDERS: ATTEND Radiology Vascular & Interventional Radiology
DX: D46.9 Myelodysplastic syndrome, unspecified (principal); I10 Essential (primary) hypertension; E11.9 Type 2 diabetes mellitus without complications; D69.6 Thrombocytopenia, unspecified; J44.9 Chronic obstructive pulmonary disease, unspecified; F32.9 Major depressive disorder, single episode, unspecified; N40.0 Benign prostatic hyperplasia without lower urinary tract symptoms; Z88.1 Allergy status to other antibiotic agents; Z88.5 Allergy status to narcotic agent; Z79.899 Other long term (current) drug therapy; Z90.49 Acquired absence of other specified parts of digestive tract; Z72.89 Other problems related to lifestyle; Z90.411 Acquired partial absence of pancreas
CPT/HCPCS: 36415; 36561; 76937; 77001; 82948; 85025; 85610; 86885; 86900; 86901; 99152; 99153; C1788; C1894; J1642; J2250; J3010; J7030; P9035; A6213